=== PATIENT | female | born 1990 | race Hispanic/Latino ===

== ENCOUNTER 2018-02-17 20:41 | Emergency (ER) | payer MEDICARE ==
[~2018-02-17] VITALS: Ht 165.1 cm; Wt 95.3 kg
--- OUTSIDE RECORDS SUMMARY | 2018-02-17 20:45 | XMS REPORT | Summary of Care ---
Author Author [facility] Organization [facility] Address Unknown Phone Unavailable Encounter PAT Graff(KELLEY) [id number] Date(s): 10/29/15 - 10/30/15 [facility] [address] [place] [address]- Discharge Disposition: Home or Self Care Attending Physician: Sofia Lange MD Vital Signs 1 2 3 Most recent to oldest [Reference Range]: 165.1 cm (10/29/15 8:30 PM) Height 99.6 DegF *HI* (10/29/15 8:30 PM) Temperature Oral [96.4-99.1 DegF] 123/87 mmHg (10/30/15 12:42 AM) 117/71 mmHg (10/29/15 11:19 PM) 121/78 mmHg (10/29/15 9:43 PM) Blood Pressure [90-140/60-90 mmHg] 17 BRMIN (10/30/15 12:42 AM) 16 BRMIN (10/29/15 11:19 PM) 18 BRMIN (10/29/15 9:43 PM) Respiratory Rate [14-20 BRMIN] 76 bpm (10/30/15 12:42 AM) 71 bpm (10/29/15 11:19 PM) 76 bpm (10/29/15 9:43 PM) Peripheral Pulse Rate [60-100 bpm] 88.636 kg (10/29/15 8:30 PM) Weight 32.52 m2 (10/29/15 8:30 PM) Body Mass Index Problem List Condition Effective Dates Status Health Status Informant Miscarriage(Confirme Resolved d) Allergies, Adverse Reactions, Alerts Substance Reaction Severity Status NKDA Active Medications acyclovir 800 mg oral tablet 800 mg=1 tab, PO, 5X Day, X 10 day, # 50 tab, 0 Refill(s) Start Date: 10/30/15 Stop Date: 11/09/15 Status: Ordered Flagyl 500 mg oral tablet 500 mg=1 tab, PO, Q8H, X 10 day, # 30 tab, 0 Refill(s) Start Date: 10/30/15 Stop Date: 11/09/15 Status: Ordered Rocephin + sodium chloride 0.9% INJ 100 mL 2 gm, Route: IVPB, ONCE, Dosing Weight 88.636, kg, Priority: STAT, Start date: 0 10/29/15 22:41:00 CDT, Stop date: 10/29/15 22:41:00 CDT Notes: (Same As: Rocephin).Use with 100 mL NS and infuse over 30 min MEDICA TION WASTE Product Size: 2000 mgProduct Wasted: ___ mg Start Date: 10/29/15 Stop Date: 10/29/15 Status: Completed Saline Flush 0.9% 10 mL, Route: IVP, Drug Form: INJ, Dosing Weight 88.636, kg, PRN, PRN Line Flush , Start date: 10/29/15 20:55:00 CDT, Duration: 30 day, Stop date: 11/28/15 20:54 :00 CDT Notes: (Same as: BD Posiflush) Start Date: 10/29/15 Stop Date: 10/30/15 Status: Discontinued Sodium Chloride 0.9% (Bolus) IV 1,000 mL, 2,000 ml/hr, Infuse Over: 30 minutes, Route: IV, 1,000, Drug form: INJ , ONCE, Priority: STAT, Dosing Weight 88.636 kg, Start date: 10/29/15 20:55:00 C DT, Duration: 1 doses or times, Stop date: 10/29/15 20:55:00 CDT Start Date: 10/29/15 Stop Date: 10/29/15 Status: Completed Valtrex 1 gm, 1 tab, Route: PO, Drug form: TAB, ONCE, Dosing Weight 88.636, kg, Start da te: 10/29/15 23:41:00 CDT, Stop date: 10/29/15 23:41:00 CDT Notes: (Same As: Valtrex) Start Date: 10/29/15 Stop Date: 10/30/15 Status: Completed Zithromax 500 mg oral tablet 1,000 mg, 4 tab, Route: PO, Drug form: TAB, ONCE, Dosing Weight 88.636, kg, Star t date: 10/30/15 0:31:00 CDT, Stop date: 10/30/15 0:31:00 CDT Notes: Take 1 hour before or 2 hours after meals.(Same As: Zithromax) Start Date: 10/30/15 Stop Date: 10/30/15 Status: Ordered Results ELECTROLYTES Most recent to 1 oldest [Reference Range]: Sodium Lvl [135-145 136 mEq/L mEq/L] (10/29/15 9:41 PM) Potassium Lvl 3.7 mEq/L [3.5-5.1 mEq/L] (10/29/15 9:41 PM) Chloride Lvl [95-109 102 mEq/L mEq/L] (10/29/15 9:41 PM) CO2 [24-32 mEq/L] 28 mEq/L (10/29/15 9:41 PM) AGAP [10.0-20.0 9.7 mEq/L mEq/L] *LOW* (10/29/15 9:41 PM) CHEM PANEL Most recent to 1 oldest [Reference Range]: Creatinine Lvl 0.66 mg/dL [0.50-1.40 mg/dL] (10/29/15 9:41 PM) eGFR 125 mL/min/1.73m2 1 *NA* (10/29/15 9:41 PM) BUN [7-22 mg/dL] 13 mg/dL (10/29/15 9:41 PM) Glucose Lvl [70-99 90 mg/dL mg/dL] (10/29/15 9:41 PM) Calcium Lvl 8.9 mg/dL [8.5-10.5 mg/dL] (10/29/15 9:41 PM) 1Result Comment: The eGFR is calculated using the CKD-EPI formula. In most young, healthy individuals the eGFR will be >90 mL/min/1.73m2. The eGFR declines with age. An eGFR of 60-89 may be normal in some populations, particularly the elderly, for whom the CKD-EPI formula has not been extensively validated. Use of the eGFR is not recommended in the following populations: Individuals with unstable creatinine concentrations, including patients and those with serious co-morbid conditions. Patients with extremes in muscle mass or diet. The data above are obtained from the National Kidney Disease Education Program ( NKDEP) which additionally recommends that when the eGFR is used in patients with extremes of body mass index for purposes of drug dosing, the eGFR should be mul tiplied by the estimated BMI. URINE CHEM Most recent to 1 oldest [Reference Range]: U Preg [Negative] Negative (10/29/15 9:41 PM) URINE AND STOOL Most recent to 1 oldest [Reference Range]: UA Turbidity [Clear] Clear (10/29/15 9:41 PM) UA Color [Yellow] Yellow *NA* (10/29/15 9:41 PM) UA pH [5.0-8.0] 7.0 (10/29/15 9:41 PM) UA Spec Grav 1.015 [<=1.030] (10/29/15 9:41 PM) UA Glucose [Negative 250 mg/dL mg/dL] *ABN* (10/29/15 9:41 PM) UA Blood [Negative] Trace *ABN* (10/29/15 9:41 PM) UA Ketones Trace [Negative] *ABN* (10/29/15 9:41 PM) UA Protein [Negative 100 mg/dL mg/dL] *ABN* (10/29/15 9:41 PM) UA Urobilinogen >=8.0 EU/dL [0.1-1.0 EU/dL] *ABN* (10/29/15 9:41 PM) UA Bili [Negative] Moderate *ABN* (10/29/15 9:41 PM) UA Leuk Est Large [Negative] *ABN* (10/29/15 9:41 PM) UA Nitrite Positive [Negative] *ABN* (10/29/15 9:41 PM) UA WBC [None Seen 11-20 /HPF /HPF] *ABN* (10/29/15 9:41 PM) UA RBC [0-2 /HPF] 3-5 /HPF *ABN* (10/29/15 9:41 PM) UA Bacteria [None Occasional /HPF Seen /HPF] (10/29/15 9:41 PM) UA Sq Epi [Few /LPF] Moderate /LPF *ABN* (10/29/15 9:41 PM) UA Amorph Masha [None Moderate /HPF Seen /HPF] *ABN* (10/29/15 9:41 PM) UA Mucus [None Seen Few /LPF /LPF] (10/29/15 9:41 PM) HEMATOLOGY Most recent to 1 oldest [Reference Range]: WBC [3.7-10.4 K/CMM] 6.0 K/CMM (10/29/15 9:41 PM) RBC [4.20-5.40 4.21 M/CMM M/CMM] (10/29/15 9:41 PM) Hgb [12.0-16.0 g/dL] 12.6 g/dL (10/29/15 9:41 PM) Hct [36.0-48.0 %] 37.1 % (10/29/15 9:41 PM) MCV [80.0-98.0 fL] 88.2 fL (10/29/15 9:41 PM) MCH [27.0-31.0 pg] 29.9 pg (10/29/15 9:41 PM) MCHC [32.0-36.0 33.9 g/dL g/dL] (10/29/15 9:41 PM) RDW [11.5-14.5 %] 12.0 % (10/29/15 9:41 PM) Platelet [133-450 290 K/CMM K/CMM] (10/29/15 9:41 PM) MPV [7.4-10.4 fL] 7.4 fL (10/29/15 9:41 PM) Segs [45.0-75.0 %] 69.6 % (10/29/15 9:41 PM) Lymphocytes 22.3 % [20.0-40.0 %] (10/29/15 9:41 PM) Monocytes [2.0-12.0 7.2 % %] (10/29/15 9:41 PM) Eosinophils [0.0-4.0 0.9 % %] (10/29/15 9:41 PM) Basophils [0.0-1.0 0.0 % %] (10/29/15 9:41 PM) Segs-Bands # 4.2 K/CMM [1.5-8.1 K/CMM] (10/29/15 9:41 PM) Lymphocytes # 1.3 K/CMM [1.0-5.5 K/CMM] (10/29/15 9:41 PM) Monocytes # [0.0-0.8 0.4 K/CMM K/CMM] (10/29/15 9:41 PM) Eosinophils # 0.1 K/CMM [0.0-0.5 K/CMM] (10/29/15 9:41 PM) Basophils # [0.0-0.2 0.0 K/CMM K/CMM] (10/29/15 9:41 PM) Immunizations No data available for this section Procedures No data available for this section Social History Social History Type Response Smoking Status Never smoker; Exposure to Tobacco Smoke None; Cigarette Smoking Last 365 Days No; Reg Smoking Cessation Counseling No Assessment and Plan No data available for this section
--- OUTSIDE RECORDS SUMMARY | 2018-02-17 20:45 | XMS REPORT | Summary of Care ---
Author Author [facility] Organization [facility] Address Unknown Phone Unavailable Encounter PAT Graff(FIN) [id number] Date(s): 05/11/17 - 05/11/17 [id number] [place] [address]- [phone] Encounter Diagnosis Labor, false (Abdirahman-James) (Discharge Diagnosis) - 05/11/17 False labor at or after 37 completed weeks of gestation (Final) - 05/17/17 37 weeks gestation of (Final) - Personal history of other complications of , childbirth and the puerper ium (Final) - Discharge Disposition: Home or Self Care Attending Physician: Tyler Spears DO Vital Signs 1 2 3 Most recent to oldest [Reference Range]: 165.1 cm (05/11/17 12:45 PM) Height 98.8 DegF (05/11/17 12:45 PM) Temperature Oral [96.4-99.1 DegF] 119/78 mmHg (05/11/17 2:01 PM) 137/81 mmHg (05/11/17 1:07 PM) 135/84 mmHg (05/11/17 12:45 PM) Blood Pressure [90-140/60-90 mmHg] 19 BRMIN (05/11/17 12:45 PM) Respiratory Rate [14-20 BRMIN] 96 bpm (05/11/17 12:45 PM) Peripheral Pulse Rate [60-100 bpm] 106.364 kg (05/11/17 12:45 PM) Weight 39.02 m2 (05/11/17 12:45 PM) Body Mass Index Problem List Condition Effective Dates Status Health Status Informant Miscarriage(Confirme Resolved d) Miscarriage(Confirme < 2015 Resolved d) (Confirmed) 05/11/17 - 05/25/17 Resolved (Confirmed) < 2014 Resolved (Confirmed) < 2013 Resolved (Confirmed) 11/19/12 - 08/26/13 Resolved (Confirmed) 02/04/09 - 11/11/09 Resolved Allergies, Adverse Reactions, Alerts Substance Reaction Severity Status NKDA Active Medications 1 oral capsule 0 Refill(s) Start Date: 05/11/17 Status: Ordered Results No data available for this section Immunizations Not Given Vaccine Date Status Refusal Reason diphtheria/pertussis, acel/tetanus adult 05/27/17 Not Given Patient Refuses Procedures No data available for this section Social History Social History Type Response Smoking Status Never smoker; Exposure to Tobacco Smoke None; Cigarette Smoking Last 365 Days No; Reg Smoking Cessation Counseling No entered on: 05/24/17 Assessment and Plan No data available for this section
--- OUTSIDE RECORDS SUMMARY | 2018-02-17 20:45 | XMS REPORT | CCD ---
Author Author Auto Generated Organization [facility] [place] Address Unknown Phone Unavailable Care Team Providers Care Agricultural Produce Packer Name Role Phone Yousif Lantigua CP Allergies, Adverse Reactions, Alerts Substance Reaction Status NKDA Active
--- OUTSIDE RECORDS SUMMARY | 2018-02-17 20:45 | XMS REPORT | Summary of Care ---
Author Author [facility] Outpatient [facility]patient [facility] Address Unknown Phone Unavailable Encounter HQ Encntr_alias(FIN) [id number] Date(s): 03/05/16 - 03/05/16 [facility] Outpatient Imaging [facility] [address] [place], [place] [address]- [phone] Discharge Disposition: Home or Self Care Attending Physician: [id number] MAGDALENO Vital Signs No data available for this section Problem List Condition Effective Dates Status Health Status Informant Miscarriage(Confirme Resolved d) Allergies, Adverse Reactions, Alerts Substance Reaction Severity Status NKDA Active Medications No data available for this section Results No data available for this section Immunizations No data available for this section Procedures No data available for this section Social History Social History Type Response Smoking Status Never smoker; Exposure to Tobacco Smoke None; Cigarette Smoking Last 365 Days No; Reg Smoking Cessation Counseling No Assessment and Plan No data available for this section
--- OUTSIDE RECORDS SUMMARY | 2018-02-17 20:45 | XMS REPORT | Summary of Care ---
Author Author [facility] Organization [facility] Address Unknown Phone Unavailable Encounter PAT Graff(KELLEY) [id number] Date(s): 12/02/16 - 12/02/16 [facility] [address] [place] [address]- [phone] Discharge Disposition: [facility] Left B4 Treatment Cmplt-MSE Cmplt Attending Physician: Tee Hensley MD Vital Signs Most recent to 1 oldest [Reference Range]: Temperature Oral 99.1 DegF [96.4-99.1 DegF] (12/02/16 3:41 PM) Blood Pressure 108/68 mmHg [90-140/60-90 mmHg] (12/02/16 3:41 PM) Respiratory Rate 22 BRMIN [14-20 BRMIN] *HI* (12/02/16 3:41 PM) Peripheral Pulse 115 bpm Rate [60-100 bpm] *HI* (12/02/16 3:41 PM) Weight 90.909 kg (12/02/16 3:41 PM) Problem List Condition Effective Dates Status Health Status Informant Miscarriage(Confirme Resolved d) Allergies, Adverse Reactions, Alerts Substance Reaction Severity Status NKDA Active Medications No data available for this section Results No data available for this section Immunizations No data available for this section Procedures No data available for this section Social History Social History Type Response Smoking Status Never smoker; Ready to change: No; Concerns about tobacco use in household: No; Exposure to Tobacco Smoke None; Cigarette Smoking Last 365 Days No; Reg Smoking Cessation Counseling No Assessment and Plan No data available for this section
--- OUTSIDE RECORDS SUMMARY | 2018-02-17 20:45 | XMS REPORT | Summary of Care ---
Author Author [facility] Organization [facility] Address Unknown Phone Unavailable Encounter PAT Graff(KELLEY) [id number] Date(s): 12/06/16 - 12/06/16 [facility] [address] [place] [address]- Discharge Diagnosis: Abdominal pain in Discharge Disposition: Home or Self Care Attending Physician: Tomer Diamond MD Vital Signs Most recent to 1 2 oldest [Reference Range]: Height 165.1 cm (12/06/16 2:13 AM) Temperature Oral 98.8 DegF 98.9 DegF [96.4-99.1 DegF] (12/06/16 6:00 AM) (12/06/16 2:13 AM) Blood Pressure 125/75 mmHg 126/88 mmHg [90-140/60-90 mmHg] (12/06/16 6:00 AM) (12/06/16 2:13 AM) Respiratory Rate 20 BRMIN 20 BRMIN [14-20 BRMIN] (12/06/16 6:00 AM) (12/06/16 2:13 AM) Peripheral Pulse 98 bpm 102 bpm Rate [60-100 bpm] (12/06/16 6:00 AM) *HI* (12/06/16 2:13 AM) Weight 95.455 kg (12/06/16 2:13 AM) Body Mass Index 35.02 m2 (12/06/16 2:13 AM) Problem List Condition Effective Dates Status Health Status Informant Miscarriage(Confirme Resolved d) Allergies, Adverse Reactions, Alerts Substance Reaction Severity Status NKDA Active Medications acetaminophen 650 mg, 2 tab, Route: PO, Drug form: TAB, ONCE, Dosing Weight 95.455, kg, Priori ty: STAT, Start date: 12/06/16 2:30:00 CDT, Stop date: 12/06/16 2:30:00 CDT Notes: Do not exceed 4 gm/day. (Same as: Tylenol) Start Date: 12/06/16 Stop Date: 12/06/16 Status: Completed ondansetron 4 mg, 2 mL, Route: IVP, Drug form: INJ, ONCE, Dosing Weight 95.455, kg, Priority : STAT, Start date: 12/06/16 2:30:00 CDT, Stop date: 12/06/16 2:30:00 CDT Notes: (Same as: Zofran) MEDICATION WASTE Product Size: 4 mgProduct Was mt: ___ mg Start Date: 12/06/16 Stop Date: 12/06/16 Status: Completed Saline Flush 0.9% 10 mL, Route: IVP, Drug Form: INJ, Dosing Weight 95.455, kg, PRN, PRN Line Flush , Start date: 12/06/16 2:30:00 CDT, Duration: 30 day, Stop date: 01/05/17 1:29:0 0 SUPERVISORY CLERK Notes: (Same as: BD Posiflush) Start Date: 12/06/16 Stop Date: 12/06/16 Status: Discontinued Sodium Chloride 0.9% (Bolus) IV 1,000 mL, 1,000 ml/hr, Infuse Over: 1 hr, Route: IV, 1,000, Drug form: INJ, ONCE , Priority: STAT, Dosing Weight 95.455 kg, Start date: 12/06/16 2:30:00 CDT, Dur ation: 1 doses or times, Stop date: 12/06/16 2:30:00 CDT Start Date: 12/06/16 Stop Date: 12/06/16 Status: Completed Results BLOOD BANK RESULTS Most recent to 1 oldest [Reference Range]: ABO/Rh O POS *Unknown* (12/06/16 3:13 AM) ELECTROLYTES Most recent to 1 oldest [Reference Range]: Sodium Lvl [135-145 135 mEq/L mEq/L] (12/06/16 3:13 AM) Potassium Lvl 3.4 mEq/L [3.5-5.1 mEq/L] *LOW* (12/06/16 3:13 AM) Chloride Lvl [95-109 102 mEq/L mEq/L] (12/06/16 3:13 AM) CO2 [24-32 mEq/L] 24 mEq/L (12/06/16 3:13 AM) AGAP [10.0-20.0 12.4 mEq/L mEq/L] (12/06/16:13 AM) CHEM PANEL Most recent to 1 oldest [Reference Range]: Creatinine Lvl 0.50 mg/dL [0.50-1.40 mg/dL] (12/06/16 3:13 AM) eGFR 136 mL/min/1.73m2 1 *NA* (12/06/16:13 AM) BUN [7-22 mg/dL] 9 mg/dL (12/06/16 3:13 AM) Glucose Lvl [70-99 99 mg/dL mg/dL] (12/06/16:13 AM) Calcium Lvl 8.8 mg/dL [8.5-10.5 mg/dL] (12/06/16:13 AM) 1Result Comment: The eGFR is calculated using [...] be mul tiplied by the estimated BMI. ENDOCRINOLOGY Most recent to 1 oldest [Reference Range]: [place] [address] mIU/mL *NA* (12/06/16 3:13 AM) URINE AND STOOL Most recent to 1 oldest [Reference Range]: UA Turbidity [Clear] Slight *ABN* (12/06/16 3:13 AM) UA Color Yellow *NA* (12/06/16 3:13 AM) UA pH [5.0-8.0] 5.0 (12/06/16 3:13 AM) UA Spec Grav 1.024 [<=1.030] (12/06/16 3:13 AM) UA Glucose [Negative Negative mg/dL mg/dL] *NA* (12/06/16 3:13 AM) UA Blood [Negative] Negative (12/06/16 3:13 AM) UA Ketones [Negative Negative mg/dL mg/dL] *NA* (12/06/16 3:13 AM) UA Protein [Negative Negative mg/dL mg/dL] (12/06/16 3:13 AM) UA Urobilinogen <=1.0 mg/dL [0.1-1.0 mg/dL] *NA* (12/06/16 3:13 AM) UA Bili [Negative] Negative *NA* (12/06/16 3:13 AM) UA Leuk Est Trace [Negative] *ABN* (12/06/16 3:13 AM) UA Nitrite Negative [Negative] (12/06/16 3:13 AM) UA WBC [0-5 /HPF] 3 /HPF (12/06/16 3:13 AM) UA RBC [0-2 /HPF] 1 /HPF (12/06/16 3:13 AM) UA Bacteria [None Occasional /HPF Seen /HPF] *NA* (12/06/16 3:13 AM) UA Sq Epi [Few /LPF] Many /LPF *ABN* (12/06/16 3:13 AM) UA Mucus [None Seen Moderate /LPF /LPF] *ABN* (12/06/16 3:13 AM) HEMATOLOGY Most recent to 1 oldest [Reference Range]: WBC [3.7-10.4 K/CMM] 10.1 K/CMM (12/06/16 3:13 AM) RBC [4.20-5.40 3.87 M/CMM M/CMM] *LOW* (12/06/16 3:13 AM) Hgb [12.0-16.0 g/dL] 11.5 g/dL *LOW* (12/06/16 3:13 AM) Hct [36.0-48.0 %] 34.1 % *LOW* (12/06/16 3:13 AM) MCV [80.0-98.0 fL] 88.1 fL (12/06/16 3:13 AM) MCH [27.0-31.0 pg] 29.8 pg (12/06/16 3:13 AM) MCHC [32.0-36.0 33.8 g/dL g/dL] (12/06/16 3:13 AM) RDW [11.5-14.5 %] 12.4 % (12/06/16 3:13 AM) Platelet [133-450 327 K/CMM K/CMM] (12/06/16 3:13 AM) MPV [7.4-10.4 fL] 7.0 fL *LOW* (12/06/16 3:13 AM) Segs [45.0-75.0 %] 80.7 % *HI* (12/06/16 3:13 AM) Lymphocytes 14.2 % [20.0-40.0 %] *LOW* (12/06/16 3:13 AM) Monocytes [2.0-12.0 3.8 % %] (12/06/16 3:13 AM) Eosinophils [0.0-4.0 1.2 % %] (12/06/16 3:13 AM) Basophils [0.0-1.0 0.1 % %] (12/06/16 3:13 AM) Segs-Bands # 8.2 K/CMM [1.5-8.1 K/CMM] *HI* (12/06/16 3:13 AM) Lymphocytes # 1.4 K/CMM [1.0-5.5 K/CMM] (12/06/16 3:13 AM) Monocytes # [0.0-0.8 0.4 K/CMM K/CMM] (12/06/16 3:13 AM) Eosinophils # 0.1 K/CMM [0.0-0.5 K/CMM] (12/06/16 3:13 AM) Basophils # [0.0-0.2 0.0 K/CMM K/CMM] (12/06/16 3:13 AM) Immunizations No data available for this section Procedures No data available for this section Social History Social History Type Response Smoking Status Never smoker; Exposure to Tobacco Smoke None; Cigarette Smoking Last 365 Days No; Reg Smoking Cessation Counseling No Assessment and Plan No data available for this section
--- OUTSIDE RECORDS SUMMARY | 2018-02-17 20:45 | XMS REPORT | Continuity of Care Document ---
Author Author [facility] Interface Address Unknown Phone Unavailable Problems Problem Status Onset Date Classification Date Reported Comments Source Maternal care for excessive growth, third trimester, not applicable or unspecified 06/01/2017 09/02/2017 [facility] False labor at or after 37 completed weeks of gestation 05/31/2017 08/29/2017 [facility] Encounter for supervision of low-risk in third trimester 05/17/2017 08/23/2017 [facility] CONTRACTIONS Active 05/17/2017 [facility] Labor, false 05/11/2017 08/17/2017 [facility] Resolved 05/11/2017 Problem 09/02/2017 [facility] 34 WEEKS, VAGINAL DELIVERY Active 04/22/2017 [facility] Discharge Diagnosis: Abdominal pain in 12/06/2016 12/09/2016 [facility] ABD PAIN Active 12/05/2016 [facility] 12 WEEKS PREG ABD PAIN Active 12/02/2016 [facility] Discharge Diagnosis: Pelvic pain 08/17/2016 08/20/2016 [facility] STOMACH PAIN Active 08/16/2016 [facility] LOWER ABDOMINAL PAIN Active 10/29/2015 [facility] Discharge Diagnosis: Threatened in first trimester 11/01/2014 11/04/2014 [facility] VAG BLEEDING Active 11/01/2014 [facility] 649.6 - UTERINE SIZE DT Active 03/15/2013 [facility] [facility]iscar[facility] 39 weeks gestation of 09/02/2017 [facility] 38 weeks gestation of 08/23/2017 [facility] 37 weeks gestation of 08/17/2017 [facility] Personal history of other complications of , childbirth and the puerperium 08/17/2017 [facility] Obesity complicating childbirth 09/02/2017 [facility] Body mass index 40.0-44.9, adult 09/02/2017 [facility] Single live 09/02/2017 [facility] ENCOUNTER FOR FULL-TERM UNCOMPLICATED DE Active [facility] Medications Medication Details Route Status Patient Instructions Ordering Provider Order Date Source ibuprofen 600 mg oral tablet 600 mg=1 tab, PO, Q6H, # 30 tab, 1 Refill(s), Pharmacy: [facility] [id number] No Longer Active 05/26/2017 [facility] Multivitamins oral tablet 1 tab, Route: PO, Drug Form: TAB, Dosing Weight 109.091, kg, Daily, Start date: 05/26/17 9:00:00 CDT, Duration: 30 day, Stop date: 06/24/17 9:00:00 CDT No Longer Active 05/26/2017 [facility] Ibuprofen 600 mg, 1 tab, Route: PO, Drug form: TAB, Q6H, Dosing Weight 109.091, kg, Start date: 05/25/17 12:00:00 CDT, Duration: 30 day, Stop date: 06/24/17 6:00:00 CDTNotes: (Same as: Motrin) "Do Not Crush" Take with food. No Longer Active 05/25/2017 [facility] Demerol HCl 25 mg, 0.5 mL, Route: IVP, Drug form: INJ, ONCE, Dosing Weight 109.091, kg, PRN Chills/Rigors, Start date: 05/25/17 10:44:00 CDTNotes: (Same As: Demerol) No Longer Active 05/25/2017 [facility] Acetaminophen 325 MG / Hydrocodone Bitartrate 10 MG Oral Tablet 1 tab, Route: PO, Drug Form: TAB, Dosing Weight 109.091, kg, Q4H, PRN Pain Score 7-10, Start date: 05/25/17 10:42:00 CDT, Duration: 30 day, Stop date: 06/24/17 10:41:00 CDTNotes: Do not exceed 4gm/day of acetaminophen. (Same as: [place] 325/10) No Longer Active 05/25/2017 [facility] Acetaminophen 325 MG / Hydrocodone Bitartrate 5 MG Oral Tablet 1 tab, Route: PO, Drug Form: TAB, Dosing Weight 109.091, kg, Q4H, PRN Pain Score 4-6, Start date: 05/25/17 10:42:00 CDT, Duration: 30 day, Stop date: 06/24/17 10:41:00 CDTNotes: (Same as: [place] 325/5) Do not exceed 4gm/day of acetaminophen. No Longer Active 05/25/2017 [facility] Methylergonovine 0.2 mg, 1 mL, Route: IM, Drug form: INJ, PRN, Dosing Weight 109.091, kg, PRN Other -See Comment, Start date: 05/25/17 10:42:00 CDT, Duration: 30 day, Stop date: 06/24/17 10:41:00 CDTNotes: (Same as:Methergine) No Longer Active 05/25/2017 [facility] Benzocaine 200 MG/ML Topical [place] [Dermoplast] 1 spray, Route: TOP, PRN, Drug form: SPRY, PRN Irritation, Start date: 05/25/17 10:42:00 CDT, Duration: 30 day, Stop date: 06/24/17 10:41:00 CDTNotes: (Same As: Dermoplast) WASTE: Aerosol - Return to Pharmacy FOR EXTERNAL USE ONLY No Longer Active 05/25/2017 [facility] Docusate 100 mg, 1 cap, Route: PO, Drug form: CAP, BID, Dosing Weight 109.091, kg, PRN Constipation, Start date: 05/25/17 10:42:00 CDT, Duration: 30 day, Stop date: 06/24/17 10:41:00 CDTNotes: (Same as: Colace) (Do Not Crush) No Longer Active 05/25/2017 [facility] Ondansetron 4 mg, 2 mL, Route: IVP, Drug form: INJ, Q8H, Dosing Weight 109.091, kg, PRN Nausea & Vomiting, Start date: 05/25/17 10:42:00 CDT, Duration: 30 day, Stop date: 06/24/17 10:41:00 CDTNotes: (Same as: Zofran) MEDICATION WASTE Product Size: 4 mg Product Wasted: ___ mg No Longer Active 05/25/2017 [facility] zolpidem 5 mg, 1 tab, Route: PO, Drug form: TAB, Bedtime, Dosing Weight 109.091, kg, PRN Sleep, Start date: 05/25/17 10:42:00 CDT, Duration: 30 day, Stop date: 06/24/17 10:41:00 CDTNotes: (Same As: Ambien) No Longer Active 05/25/2017 [facility] lanolin topical 1 appl, Route: TOP, PRN, Drug form: OINT, PRN Other -See Comment, Start date: 05/25/17 10:42:00 CDT, Duration: 30 day, Stop date: 06/24/17 10:41:00 CDTNotes: (Same as:Lanolin) No Longer Active 05/25/2017 [facility] Bisacodyl 10 mg, 1 supp, Route: [place], Drug form: SUPP, PRN, Dosing Weight 109.091, kg, PRN Other -See Comment, Start date: 05/25/17 10:42:00 CDT, Duration: 30 day, Stop date: 06/24/17 10:41:00 CDTNotes: (Same As: Dulcolax, Bisco-Lax) No Longer Active 05/25/2017 [facility] Lactated Ringers IV 1,000 mL 1,000 mL, Rate: 100 ml/hr, Infuse over: 10 hr, Route: IV, Dosing Weight 109.091 kg, Total Volume: 1,000, Start date: 05/25/17 10:42:00 CDT, Duration: 30 day, Stop date: 06/24/17 10:41:00 CDT, 2.27, m2 No Longer Active 05/25/2017 [facility] Oxytocin 30 unit, 500 mL, Rate: 42 ml/hr, Infuse over: 11.9 hr, Dosing Weight 109.091, kg, Route: IV, Total Volume: 500 mL, Start date: 05/25/17 10:42:00 CDT, Duration: 2 day, Stop date: 05/27/17 10:41:00 CDT, Replace Every: 11.9 hr No Longer Active 05/25/2017 [facility] Acetaminophen 650 mg, Route: PO, Drug form: TAB, ONCE, Dosing Weight 109.091, kg, PRN For Temp > 100.4 F, Start date: 05/25/17 10:10:00 CDT Inactive 05/25/2017 [facility] Oxytocin 30 unit, 500 mL, Rate: Titrate, Dosing Weight 109.091, kg, Route: IV, Total Volume: 500 mL, Start date: 05/25/17 3:00:00 CDT, Duration: 2 day, Stop date: 05/27/17 2:59:00 CDT, Replace Every: 24 hr Inactive 05/25/2017 [facility] Ampicillin 2 gm, Route: IVPB, ABXQ6H, Dosing Weight 109.091, kg, Start date: 05/24/17 22:00:00 CDT, Duration: 30 day, Stop date: 06/23/17 16:00:00 CDTNotes: (Same as: Norah) MEDICATION WASTE Product Size: 2000 mg Product Wasted: ___ mg No Longer Active 05/25/2017 [facility] Remove - dinoprostone (Cervidil) insert 1 ea, Route: VAG, Drug Form: INS, Dosing Weight 109.091, kg, ONCALL, Start date: 05/24/17 20:00:00 CDT, Duration: 30 day, Stop date: 06/23/17 19:59:00 CDTNotes: Vaginal insert: to be removed 1 hour prior to oxytocin administration or 12 hours after insertion. No Longer Active 05/25/2017 [facility] Cervidil 10 mg, 1 supp, Route: VAG, Drug form: SUPP, ONCE, Dosing Weight 109.091, kg, Start date: 05/24/17 17:27:00 CDT, Stop date: 05/24/17 17:27:00 CDTNotes: (Same as: Cervidil) Inactive 05/24/2017 [facility] Misoprostol 100 microgram, 1 tab, Route: PO, Drug form: TAB, Q4H, Dosing Weight 109.091, kg, Start date: 05/24/17 9:19:00 CDT, Duration: 30 day, Stop date: 06/23/17 8:00:00 CDTNotes: (Same as:Cytotec) Take with food Inactive 05/24/2017 [facility] Misoprostol 1,000 microgram, 5 tab, Route: NY, Drug form: TAB, ONCALL, Dosing Weight 109.091, kg, Start date: 05/24/17 8:00:00 CDT, Duration: 1 doses or timesNotes: (Same as:Cytotec) Take with food No Longer Active 05/24/2017 [facility] Methylergonovine 0.2 mg, 1 mL, Route: IM, Drug form: INJ, ONCALL, Dosing Weight 109.091, kg, Start date: 05/24/17 8:00:00 CDT, Duration: 30 day, Stop date: 06/23/17 7:59:00 CDTNotes: (Same as:Methergine) No Longer Active 05/24/2017 [facility] Famotidine 20 mg, 2 mL, Route: IVP, Drug form: INJ, ONCALL, Dosing Weight 109.091, kg, Start date: 05/24/17 8:00:00 CDT, Duration: 30 day, Stop date: 06/23/17 7:59:00 CDTNotes: (Same as: Pepcid) Can be dilute in 5-10cc NS IVP: Slow IV push over at least 2 minutes. No Longer Active 05/24/2017 [facility] Carboprost 250 microgram, 1 mL, Route: IM, Drug form: INJ, ONCALL, Dosing Weight 109.091, kg, Start date: 05/24/17 8:00:00 CDT, Duration: 30 day, Stop date: 06/23/17 7:59:00 CDTNotes: (Same As: Hemabate) No Longer Active 05/24/2017 [facility] Citric Acid / sodium citrate 30 mL, Route: PO, Drug Form: SOLN, Dosing Weight 109.091, kg, ONCALL, Start date: 05/24/17 8:00:00 CDT, Duration: 30 day, Stop date: 06/23/17 7:59:00 CDTNotes: (Same As: Bicitra) No Longer Active 05/24/2017 [facility] Lidocaine Hydrochloride 10 MG/ML Injectable Solution 200 mg, 20 mL, Route: PERCUT, Drug Form: INJ, Dosing Weight 109.091, kg, PRN, PRN Other -See Comment, Start date: 05/24/17 7:25:00 CDT, Duration: 1 doses or times, Stop date: Limited # of timesNotes: (Same as: Xylocaine) No Longer Active 05/24/2017 [facility] Ondansetron 4 mg, 2 mL, Route: IVP, Drug form: INJ, Q8H, Dosing Weight 109.091, kg, PRN Nausea & Vomiting, Start date: 05/24/17 7:25:00 CDT, Duration: 30 day, Stop date: 06/23/17 7:24:00 CDTNotes: (Same as: Nicolas) MEDICATION WASTE Product Size: 4 mg Product Wasted: ___ mg No Longer Active 05/24/2017 [facility] Terbutaline 0.25 mg, 0.25 mL, Route: SUB-Q, Drug form: INJ, PRN, Dosing Weight 109.091, kg, PRN Other -See Comment, Start date: 05/24/17 7:25:00 CDT, Duration: 1 doses or times, Stop date: Limited # of timesNotes: DO NOT USE IN NIGHT FILLER AREA (Same As: Meet) No Longer Active 05/24/2017 [facility] Lactated Ringers IV 1,000 mL 1,000 mL, Rate: 125 ml/hr, Infuse over: 8 hr, Route: IV, Dosing Weight 109.091 kg, Total Volume: 1,000, Start date: 05/24/17 7:25:00 CDT, Duration: 30 day, Stop date: 06/23/17 7:24:00 CDT, 2.27, m2 No Longer Active 05/24/2017 [facility] Calcium Chloride 0.0014 MEQ/ML / Potassium Chloride 0.004 MEQ/ML / Sodium Chloride 0.103 MEQ/ML / Sodium Lactate 0.028 MEQ/ML Injectable Solution 1,000 mL, 1,000 ml/hr, Infuse Over: 1 hr, Route: IV, 1,000, Drug form: INJ, ONCE, Dosing Weight 109.091 kg, Start date: 05/24/17 7:25:00 CDT, Stop date: 05/24/17 7:25:00 CDT, Bolus for regional anesthesia per unit protocol No Longer Active 05/24/2017 [facility] Oxytocin 30 unit, 500 mL, Rate: 42 ml/hr, Infuse over: 11.9 hr, Dosing Weight 109.091, kg, Route: IV, Total Volume: 500 mL, Start date: 05/24/17 7:25:00 CDT, Duration: 2 day, Stop date: 05/26/17 7:24:00 CDT, Replace Every: 11.9 hr No Longer Active 05/24/2017 [facility] Ibuprofen 600 mg, 1 tab, Route: PO, Drug form: TAB, Q6H, Dosing Weight 109.091, kg, PRN Other -See Comment, Start date: 05/24/17 7:25:00 CDT, Duration: 30 day, Stop date: 06/23/17 7:24:00 CDTNotes: (Same as: Motrin) "Do Not Crush" Take with food. No Longer Active 05/24/2017 [facility] Acetaminophen 325 MG / Hydrocodone Bitartrate 5 MG Oral Tablet 2 tab, Route: PO, Drug Form: TAB, Dosing Weight 109.091, kg, Q4H, PRN Pain Score 7-10, Start date: 05/24/17 7:25:00 CDT, Duration: 30 day, Stop date: 06/23/17 7:24:00 CDTNotes: (Same as: [place] 325/5) Do not exceed 4gm/day of acetaminophen. No Longer Active 05/24/2017 [facility] Butorphanol 2 mg, 1 mL, Route: IVP, Drug form: INJ, Q2H, Dosing Weight 109.091, kg, PRN Pain Score 7-10, Start date: 05/24/17 7:25:00 CDT, Duration: 30 day, Stop date: 06/23/17 7:24:00 CDTNotes: (Same As: Staarely) MEDICATION WASTE Product Size: 2 mg Product Wasted: ___ mg No Longer Active 05/24/2017 [facility] Calcium Chloride 0.0014 MEQ/ML / Potassium Chloride 0.004 MEQ/ML / Sodium Chloride 0.103 MEQ/ML / Sodium Lactate 0.028 MEQ/ML Injectable Solution 1,000 mL, 1,000 ml/hr, Infuse Over: 1 hr, Route: IV, ONCE, Priority: STAT, Dosing Weight 108.182 kg, Start date: 05/23/17 11:25:00 CDT, Stop date: 05/23/17 11:25:00 CDT Inactive 05/23/2017 [facility] 1 oral capsule 0 Refill(s) Active 05/11/2017 [facility] Ondansetron 4 mg, 2 mL, Route: IVP, Drug form: INJ, ONCE, Dosing Weight 95.455, kg, Priority: STAT, Start date: 12/06/16 2:30:00 CDT, Stop date: 12/06/16 2:30:00 CDTNotes: (Same as: Nicolas) MEDICATION WASTE * Product Size: 4 mg Product Wasted: ___ mg Inactive 12/06/2016 [facility] Acetaminophen 650 mg, 2 tab, Route: PO, Drug form: TAB, ONCE, Dosing Weight 95.455, kg, Priority: STAT, Start date: 12/06/16 2:30:00 CDT, Stop date: 12/06/16 2:30:00 CDTNotes: Do not exceed 4 gm/day. (Same as: Ty lenol) Inactive 12/06/2016 [facility] Sodium Chloride 0.9% (Bolus) IV 1,000 mL, 1,000 ml/hr, Infuse Over: 1 hr, Route: IV, 1,000, Drug form: INJ, ONCE, Priority: STAT, Dosing Weight 95.455 kg, Start date: 12/06/16 2:30:00 CDT, Duration: 1 doses or times, Stop date: 12/06/16 2:30:00 CDT Inactive 12/06/2016 [facility] Saline Flush 0.9% 10 mL, Route: IVP, Drug Form: INJ, Dosing Weight 95.455, kg, PRN, PRN Line Flush, Start date: 12/06/16 2:30:00 CDT, Duration: 30 day, Stop date: 01/05/17 1:29:00 CSTNotes: (Same as: BD Posiflush) Inactive 12/06/2016 [facility] tramadol hydrochloride 50 MG Oral Tablet 50 mg=1 tab, PO, Q4H, # 12 tab, 0 Refill(s) Active 08/17/2016 [facility] Ibuprofen 200 MG Oral Tablet [Motrin] 400 mg=2 tab, PO, Q6H, PRN Fever, # 120 tab, 0 Refill(s) Active 08/17/2016 [facility] Motrin 400 mg, 1 tab, Route: PO, Drug form: TAB, ONCE, Dosing Weight 93.182, kg, Priority: STAT, Start date: 08/16/16 22:55:00 CDT, Stop date: 08/16/16 22:55:00 CDTNotes: (Same as: Motrin) "Do Not Crush" Give with food. No Longer Active 08/17/2016 [facility] sodium chloride 0.9% 1000 ml INJ 1,000 mL 1,000 mL, Rate: 125 ml/hr, Infuse over: 8 hr, Route: IV, Dosing Weight 93.182 kg, Total Volume: 1,000, Start date: 08/16/16 22:41:00 CDT, Duration: 30 day, Stop date: 09/15/16 22:40:00 CDT No Longer Active 08/17/2016 [facility] Omnipaque 300 injectable solution 85 mL, Route: IVP, Drug Form: SOLN, Dosing Weight 93.182, kg, ONCALL, GFR > 45 mL/min, STAT, Start date: 08/16/16 21:18:00 CDT, Duration: 1 doses or timesNotes: (Same as:Omnipaque 300). WASTE: F/P - Black; E - Municipal Trash Bin Inactive 08/17/2016 [facility] Zosyn 3.375 gm, Route: IVPB, ONCE, Dosing Weight 93.182, kg, Priority: STAT, Start date: 08/16/16 20:05:00 CDT, Duration: 1 doses or times, Stop date: 08/16/16 20:05:00 CDT, ABX Indication: Intra-abdominal In fectionNotes: (Same as: Zosyn) Dosing based on Piperacillin component MEDICATION WASTE Product Size: 3375 mg Product Wasted: ___ mg Inactive 08/17/2016 [facility] Zofran 4 mg, 2 mL, Route: IVP, Drug form: INJ, ONCE, Dosing Weight 93.182, kg, Priority: STAT, Start date: 08/16/16 20:05:00 CDT, Stop date: 08/16/16 20:05:00 CDTNotes: (Same as: Zofran) MEDICATION WASTE Product Size: 4 mg Product Wasted: ___ mg Inactive 08/17/2016 [facility] Morphine 4 mg, 1 mL, Route: IVP, Drug form: INJ, ONCE, Dosing Weight 93.182, kg, Priority: STAT, Start date: 08/16/16 20:04:00 CDT, Stop date: 08/16/16 20:04:00 CDTNotes: (Same as:MORPhine Sulfate) Inactive 08/17/2016 [facility] Sodium Chloride 0.154 MEQ/ML Injectable Solution 1,000 mL, 1,000 ml/hr, Infuse Over: 1 hr, Route: IV, 1,000, Drug form: INJ, ONCE, Priority: STAT, Dosing Weight 93.182 kg, Start date: 08/16/16 20:04:00 CDT, Duration: 1 doses or times, Stop date: 08/16/16 20:04:00 CDT Inactive 08/17/2016 [facility] acyclovir 800 mg oral tablet 800 mg=1 tab, PO, 5X Day, X 10 day, # 50 tab, 0 Refill(s) Active 10/30/2015 [facility] Metronidazole 500 MG Oral Tablet [Flagyl] 500 mg=1 tab, PO, Q8H, X 10 day, # 30 tab, 0 Refill(s) Active 10/30/2015 [facility] Azithromycin 500 MG Oral Tablet [Zithromax] 1,000 mg, 4 tab, Route: PO, Drug form: TAB, ONCE, Dosing Weight 88.636, kg, Start date: 10/30/15 0:31:00 CDT, Stop date: 10/30/15 0:31:00 CDTNotes: Take 1 hour before or 2 hours after meals. (Same As: Zithromax) Inactive 10/30/2015 [facility] Valtrex 1 gm, 1 tab, Route: PO, Drug form: TAB, ONCE, Dosing Weight 88.636, kg, Start date: 10/29/15 23:41:00 CDT, Stop date: 10/29/15 23:41:00 CDTNotes: (Same As: Valtrex) No Longer Active 10/30/2015 [facility] Rocephin 2 gm, Route: IVPB, ONCE, Dosing Weight 88.636, kg, Priority: STAT, Start date: 10/29/15 22:41:00 CDT, Stop date: 10/29/15 22:41:00 CDTNotes: (Same As: Rocephin). Use with 100 mL NS and infuse over 30 m in MEDICATION WASTE Product Size: 2000 mg Product Wasted: ___ mg Inactive 10/30/2015 [facility] Saline Flush 0.9% 10 mL, Route: IVP, Drug Form: INJ, Dosing Weight 88.636, kg, PRN, PRN Line Flush, Start date: 10/29/15 20:55:00 CDT, Duration: 30 day, Stop date: 11/28/15 20:54:00 CDTNotes: (Same as: BD Posiflush) No Longer Active 10/30/2015 [facility] Sodium Chloride 0.154 MEQ/ML Injectable Solution 1,000 mL, 2,000 ml/hr, Infuse Over: 30 minutes, Route: IV, 1,000, Drug form: INJ, ONCE, Priority: STAT, Dosing Weight 88.636 kg, Start date: 10/29/15 20:55:00 CDT, Duration: 1 doses or times, Stop date: 10/29/15 20:55:00 CDT Inactive 10/30/2015 [facility] Metronidazole 500 MG Oral Tablet [Flagyl] 500 mg=1 tab, PO, BID, X 7 day, # 14 tab, 0 Refill(s) Active 11/01/2014 [facility] Saline Flush 0.9% 10 mL, Route: IVP, Drug Form: INJ, Dosing Weight 76.364, kg, PRN, PRN Line Flush, Start date: 11/01/14 9:52:00, Duration: 30 day, Stop date: 12/01/14 9:51:00Notes: (Same as: BD Posiflush) Inactive 11/01/2014 [facility] Allergies, Adverse Reactions, Alerts Substance Category Reaction Severity Reaction type Status Date Reported Comments Source Immunizations Immunization Date Given Site Status Last Updated Comments Source diphtheria/pertussis, acel/tetanus adult 05/27/2017 Not Given [facility] Results Order Name Results Value Reference Range Date Interpretation Comments Source HEMATOLOGY Hgb 7.4 g/dL 12.0 - 16.0 05/26/2017 [facility] HEMATOLOGY Hct 24.0 % 36.0 - 48.0 05/26/2017 [facility] BLOOD BANK RESULTS Antibody Scrn Negative (05/24/17 7:27 AM) 05/24/2017 [facility] BLOOD BANK RESULTS Rhig Reqd See Note 1 (05/24/17 7:27 AM) 05/24/2017 Result Comment: 05/24/2017 08:19 [id number] This patient is not a candidate for Rh(O)D immune globulin. [facility] BLOOD BANK RESULTS ABO/Rh O POS 05/24/2017 [facility] WBC 7.5 K/CMM 3.7 - 10.4 05/24/2017 [facility] RBC 3.40 M/CMM 4.20 - 5.40 05/24/2017 [facility] Hgb 9.4 g/dL 12.0 - 16.0 05/24/2017 [facility] MCV 81.7 fL 80.0 - 98.0 05/24/2017 [facility] Hct 27.8 % 36.0 - 48.0 05/24/2017 [facility] MCH 27.7 pg 27.0 - 31.0 05/24/2017 [facility] RDW 15.9 % 11.5 - 14.5 05/24/2017 [facility] MPV 8.0 fL 7.4 - 10.4 05/24/2017 [facility] MCHC 33.9 g/dL 32.0 - 36.0 05/24/2017 [facility] Platelet 273 K/CMM 133 - 450 05/24/2017 [facility] Eosinophils # 0.1 K/CMM 0.0 - 0.5 05/24/2017 [facility] Basophils # 0.0 K/CMM 0.0 - 0.2 05/24/2017 [facility] Monocytes 5.7 % 2.0 - 12.0 05/24/2017 [facility] Basophils 0.4 % 0.0 - 1.0 05/24/2017 [facility] Eosinophils 1.3 % 0.0 - 4.0 05/24/2017 [facility] Lymphocytes # 2.0 K/CMM 1.0 - 5.5 05/24/2017 [facility] Segs-Bands # 4.9 K/CMM 1.5 - 8.1 05/24/2017 [facility] Monocytes # 0.4 K/CMM 0.0 - 0.8 05/24/2017 [facility] Segs 65.7 % 45.0 - 75.0 05/24/2017 [facility] Lymphocytes 26.9 % 20.0 - 40.0 05/24/2017 [facility] Treponemal Ab Non Reactive *NA* (05/24/17 7:27 AM) Non Reactive 05/24/2017 [facility] IMMUNOLOGY Hep Bs Ag Negative *NA* (05/24/17 7:27 AM) Negative 05/24/2017 [facility] IMMUNOLOGY HIV. Negative *NA* (05/24/17 7:27 AM) Negative 05/24/2017 [facility] age age Patient Name: JEMAL DEL CASTILLO : 1990; Age: 26 years y/o Female MR: [id number] Study: age 305/24/2017 8:16 AM CDT Ordering Physician: Clinical Indication: - for presenting part; Comparison: None Limited central ultrasound examination. Request is for presentation only. A limited transabdominal ultrasound image demonstrates a fetus in cephalic position. No other anatomic or biometric data available. SL: [id number] 05/24/2017 - - Read by: Mina Mathew MD Dictated Date/time: 05/24/17 08:56 Electronically Signed by: Mina Mathew MD 05/24/17 08:57 FINAL REPORT [facility] age age Patient Name: JEMAL DEL CASTILLO : 1990; Age: 26 years y/o Female MR: [id number] Study: age 305/23/2017 11:25 AM CDT Ordering Physician: Clinical Indication: - 39 weeks/pelvic pressure/md requesting weight.; Comparison: Obstetrical ultrasound exam 12/06/2016. Limited obstetrical ultrasound exam There is a single live intrauterine gestation in cephalic position. Biometric parameters concordant at 40 weeks. Biparietal diameter 9.9 cm, 41 weeks 0 day. Head circumference 35.5 cm, 41 week 4 day. Abdomen sacrum was 36.9 cm, 40 week 6 day. Femur length 7.2 cm, 37 weeks 0 day. Estimated due date AUA 05/22/2017. weight 3997 g +/- 584 g. LMP percentile 90%. Fundal placenta without previa. Maternal cervix not specifically visualized. Amniotic fluid index 10.3 cm with largest pocket 5.6 cm. heart rate 152 bpm. anatomic survey not otherwise specifically performed, limited obstetrical ultrasound exam. Maternal uterus, ovaries, adnexa and bladder not otherwise demonstrated. IMPRESSION: 40 weeks single live intrauterine gestation in cephalic position. weight calculated 3997 g +/- 584 g. Normal amniotic fluid volume, placenta. SL: [id number] 05/23/2017 - - Read by: Mina Mathew MD Dictated Date/time: 05/23/17 12:21 Electronically Signed by: Mina Mathew MD 05/23/17 12:25 FINAL REPORT [facility] BLOOD BANK RESULTS ABO/Rh O POS 12/06/2016 [facility] ELECTROLYTES AGAP 12.4 meq/L 10.0 - 20.0 12/06/2016 [facility] ELECTROLYTES eGFR 136 mL/min/1.73m2 12/06/2016 Result Comment: The eGFR is calculated using the [...] from the National Kid[employer] Disease Education Program (NKDEP) which additionally recommends that when the eGFR is used in patients with extremes of body mass index for purposes of drug dosing, the eGFR should be multiplied by the estimated BMI. [facility] ELECTROLYTES CO2 24 meq/L 24 - 32 12/06/2016 [facility] ELECTROLYTES Calcium Lvl 8.8 mg/dL 8.5 - 10.5 12/06/2016 [facility] ELECTROLYTES Chloride Lvl 102 meq/L 95 - 109 12/06/2016 [facility] ELECTROLYTES Potassium Lvl 3.4 meq/L 3.5 - 5.1 12/06/2016 [facility] ELECTROLYTES BUN 9 mg/dL 7 - 22 12/06/2016 [facility] ELECTROLYTES Creatinine Lvl 0.50 mg/dL 0.50 - 1.40 12/06/2016 [facility] ELECTROLYTES Sodium Lvl 135 meq/L 135 - 145 12/06/2016 [facility] ELECTROLYTES Glucose Lvl 99 mg/dL 70 - 99 12/06/2016 [facility] [place] [id number] mIU/mL 12/06/2016 [facility] HEMATOLOGY MPV 7.0 fL 7.4 - 10.4 12/06/2016 [facility] HEMATOLOGY MCH 29.8 pg 27.0 - 31.0 12/06/2016 [facility] HEMATOLOGY MCHC 33.8 g/dL 32.0 - 36.0 12/06/2016 [facility] RDW 12.4 % 11.5 - 14.5 12/06/2016 [facility] Platelet 327 K/CMM 133 - 450 12/06/2016 [facility] MCV 88.1 fL 80.0 - 98.0 12/06/2016 [facility] Hct 34.1 % 36.0 - 48.0 12/06/2016 [facility] RBC 3.87 M/CMM 4.20 - 5.40 12/06/2016 [facility] Hgb 11.5 g/dL 12.0 - 16.0 12/06/2016 [facility] WBC 10.1 K/CMM 3.7 - 10.4 12/06/2016 [facility] Lymphocytes # 1.4 K/CMM 1.0 - 5.5 12/06/2016 [facility] Segs-Bands # 8.2 K/CMM 1.5 - 8.1 12/06/2016 [facility] Monocytes # 0.4 K/CMM 0.0 - 0.8 12/06/2016 [facility] Basophils 0.1 % 0.0 - 1.0 12/06/2016 [facility] Eosinophils # 0.1 K/CMM 0.0 - 0.5 12/06/2016 [facility] Basophils # 0.0 K/CMM 0.0 - 0.2 12/06/2016 [facility] Segs 80.7 % 45.0 - 75.0 12/06/2016 [facility] Lymphocytes 14.2 % 20.0 - 40.0 12/06/2016 [facility] Monocytes 3.8 % 2.0 - 12.0 12/06/2016 [facility] Eosinophils 1.2 % 0.0 - 4.0 12/06/2016 [facility] URINE AND STOOL UA Turbidity Slight *ABN* (12/06/16 3:13 AM) Clear 12/06/2016 [facility] URINE AND STOOL UA Urobilinogen <=1.0 mg/dL 0.1 - 1.0 12/06/2016 [facility] URINE AND STOOL UA Bacteria Occasional /HPF None Seen /HPF 12/06/2016 [facility] URINE AND STOOL UA Mucus Moderate /LPF None Seen /LPF 12/06/2016 [facility] URINE AND STOOL UA Color Yellow 12/06/2016 [facility] URINE AND STOOL UA RBC 1 /HPF 0 - 2 12/06/2016 [facility] URINE AND STOOL UA Leuk Est Trace *ABN* (12/06/16 3:13 AM) Negative 12/06/2016 [facility] URINE AND STOOL UA Sq Epi Many /LPF Few /LPF 12/06/2016 [facility] URINE AND STOOL UA WBC 3 /HPF 0 - 5 12/06/2016 [facility] URINE AND STOOL UA Nitrite Negative (12/06/16 3:13 AM) Negative 12/06/2016 [facility] URINE AND STOOL UA Blood Negative (12/06/16 3:13 AM) Negative 12/06/2016 [facility] URINE AND STOOL UA Glucose Negative mg/dL Negative mg/dL 12/06/2016 [facility] URINE AND STOOL UA Protein Negative mg/dL Negative mg/dL 12/06/2016 [facility] URINE AND STOOL UA Bili Negative *NA* (12/06/16 3:13 AM) Negative 12/06/2016 [facility] URINE AND STOOL UA Ketones Negative mg/dL Negative mg/dL 12/06/2016 [facility] URINE AND STOOL UA pH 5.0 5.0 - 8.0 12/06/2016 [facility] URINE AND STOOL UA Spec Grav 1.024 <=1.030 12/06/2016 [facility] age age CLINICAL HISTORY: Abdominal pain. LMP unknown COMPARISON: Pelvic ultrasound 12/02/2016. TECHNIQUE: Limited transabdominal ultrasound is performed to evaluate for age. FINDINGS: The cervix is 3.9 cm in length. The placenta is posterior. No evidence of placental abruption or previa. The position is cephalic. The heart rate is 156 bpm. BPD: 3.1 cm, consistent with 15 weeks, 5 days. HC: 11.6 cm, consistent with 15 weeks, 5 days. AC: 9.1 cm, consistent with 15 weeks, 2 days. FL: 1.9 cm, consistent with 15 weeks, 6 days. Composite age by current ultrasound: 15 weeks, 5 days. DAPHNE by current ultrasound: 05/25/2017. weight by current ultrasound: 127 grams +/- 19 grams. anatomy not evaluated. The left ovary is normal in morphology and size measuring 3.1 x 2.0 x 2.1 cm. There is Doppler flow within the left ovary. IMPRESSION: 1. Composite age of 15 weeks, 5 days. 2. anatomy not evaluated. A full anatomic survey is recommended at 18-20 weeks gestational age. General observations regarding ultrasound: 1. A normal or negative sonogram report should not delay further investigation of a clinically suspicious or abnormal . 2. position or overlap of parts may prevent complete evaluation of the fetus. 3. Congenital and developmental abnormalities are not always sonographically demonstrable. 4. Repeat sonograms may be necessary depending on the clinical development during . SL: [id number] 12/06/2016 - - Read by: Doyle Crooks MD Dictated Date/time: 12/06/16 05:31 Electronically Signed by: Doyle Crooks MD 12/06/16 05:37 FINAL REPORT [facility] age age EXAM: age ultrasound HISTORY: , pelvic pain COMPARISON: Ultrasound 08/06/2016 TECHNIQUE: Transabdominal grayscale static imaging of the pelvis performed with standard technique. FINDINGS: 1. Single viable intrauterine with sonographic gestational age 14 weeks 5 days. Heart rate 158 bpm. 2. The placenta is posterior, grade 1 with previa. Follow-up can be obtained. 3. Estimated weight 97 g. Estimated date of delivery 05/28/2017. Cervix is closed. 4. Left ovary contains a hemorrhagic corpus luteum. Right ovary not visualized. 5. The bladder is underdistended. SL: [id number] 12/02/2016 - - Read by: Jaxon Rahman MD Dictated Date/time: 12/02/16 16:44 Electronically Signed by: Jaxon Rahman MD 12/02/16 16:48 FINAL REPORT [facility] CHEM PANEL Lipase Lvl 99 unit/L 73 - 393 08/17/2016 [facility] CHEM PANEL Globulin 4.5 g/dL 2.7 - 4.2 08/17/2016 [facility] CHEM PANEL A/G Ratio 0.8 0.7 - 1.6 08/17/2016 [facility] CHEM PANEL B/C Ratio 9 6 - 25 08/17/2016 [facility] CHEM PANEL AGAP 12.0 meq/L 10.0 - 20.0 08/17/2016 [facility] CHEM PANEL eGFR 109 mL/min/1.73m2 08/17/2016 Result Comment: The eGFR is calculated using the [...] from the National Kidney Disease Education Program (NKDEP) which additionally recommends that when the eGFR is used in patients with extremes of body mass index for purposes of drug dosing, the eGFR should be multiplied by the estimated BMI. [facility] CHEM PANEL AST 45 unit/L 0 - 37 08/17/2016 [facility] CHEM PANEL ALT 57 unit/L 0 - 65 08/17/2016 [facility] CHEM PANEL Alk Phos 90 unit/L 39 - 136 08/17/2016 [facility] CHEM PANEL Albumin Lvl 3.7 g/dL 3.5 - 5.0 08/17/2016 [facility] CHEM PANEL CO2 26 meq/L 24 - 32 08/17/2016 [facility] CHEM PANEL Chloride Lvl 100 meq/L 95 - 109 08/17/2016 [facility] CHEM PANEL Bili Total 0.4 mg/dL 0.2 - 1.3 08/17/2016 [facility] CHEM PANEL Total Protein 8.2 g/dL 6.4 - 8.4 08/17/2016 [facility] CHEM PANEL Calcium Lvl 9.0 mg/dL 8.5 - 10.5 08/17/2016 [facility] CHEM PANEL Potassium Lvl 4.0 meq/L 3.5 - 5.1 08/17/2016 [facility] CHEM PANEL Creatinine Lvl 0.76 mg/dL 0.50 - 1.40 08/17/2016 [facility] CHEM PANEL Sodium Lvl 134 meq/L 135 - 145 08/17/2016 [facility] CHEM PANEL Glucose Lvl 120 mg/dL 70 - 99 08/17/2016 [facility] CHEM PANEL BUN 7 mg/dL 7 - 22 08/17/2016 [facility] ENDOCRINOLOGY S Preg Negative *NA* (08/16/16 8:26 PM) Negative 08/17/2016 [facility] HEMATOLOGY Lymphocytes # 0.9 K/CMM 1.0 - 5.5 08/17/2016 [facility] HEMATOLOGY Monocytes # 0.6 K/CMM 0.0 - 0.8 08/17/2016 [facility] HEMATOLOGY Plt Morph Normal (08/16/16 8:26 PM) 08/17/2016 [facility] RBC Morph Normal (08/16/16 8:26 PM) 08/17/2016 [facility] Lymphocytes 6.0 % 20.0 - 40.0 08/17/2016 [facility] Segs 71.0 % 45.0 - 75.0 08/17/2016 [facility] Monocytes 4.0 % 2.0 - 12.0 08/17/2016 [facility] Basophils 1.0 % 0.0 - 1.0 08/17/2016 [facility] HEMATOLOGY Bands 18.0 % 0.0 - 11.0 08/17/2016 [facility] Atypical Lymphs 0.0 % <=0.0 % 08/17/2016 [facility] Basophils # 0.1 K/CMM 0.0 - 0.2 08/17/2016 [facility] Segs-Bands # 13.0 K/CMM 1.5 - 8.1 08/17/2016 [facility] MCHC 33.3 g/dL 32.0 - 36.0 08/17/2016 [facility] RDW 12.3 % 11.5 - 14.5 08/17/2016 [facility] Platelet 298 K/CMM 133 - 450 08/17/2016 [facility] MPV 7.8 fL 7.4 - 10.4 08/17/2016 [facility] RBC 4.25 M/CMM 4.20 - 5.40 08/17/2016 [facility] MCH 29.8 pg 27.0 - 31.0 08/17/2016 [facility] WBC 14.6 K/CMM 3.7 - 10.4 08/17/2016 [facility] Hct 38.1 % 36.0 - 48.0 08/17/2016 [facility] MCV 89.5 fL 80.0 - 98.0 08/17/2016 [facility] Hgb 12.7 g/dL 12.0 - 16.0 08/17/2016 [facility] URINE AND STOOL UA Color Yellow 08/17/2016 [facility] URINE AND STOOL UA Urobilinogen <=1.0 mg/dL 0.1 - 1.0 08/17/2016 [facility] URINE AND STOOL UA Glucose Negative mg/dL Negative mg/dL 08/17/2016 [facility] URINE AND STOOL UA Protein Negative mg/dL Negative mg/dL 08/17/2016 [facility] URINE AND STOOL UA Mucus Few /LPF None Seen /LPF 08/17/2016 [facility] URINE AND STOOL UA pH 6.0 5.0 - 8.0 08/17/2016 [facility] URINE AND STOOL UA Turbidity Slight *ABN* (08/16/16 8:26 PM) Clear 08/17/2016 [facility] URINE AND STOOL UA Spec Grav 1.021 <=1.030 08/17/2016 [facility] URINE AND STOOL UA Leuk Est Trace *ABN* (08/16/16 8:26 PM) Negative 08/17/2016 [facility] URINE AND STOOL UA Nitrite Negative (08/16/16 8:26 PM) Negative 08/17/2016 [facility] URINE AND STOOL UA Bacteria Occasional /HPF None Seen /HPF 08/17/2016 [facility] URINE AND STOOL UA RBC null 0 - 2 08/17/2016 [facility] URINE AND STOOL UA WBC 3 /HPF 0 - 5 08/17/2016 [facility] URINE AND STOOL UA Sq Epi Many /LPF Few /LPF 08/17/2016 [facility] URINE AND STOOL UA Bili Negative *NA* (08/16/16 8:26 PM) Negative 08/17/2016 [facility] URINE AND STOOL UA Blood Negative (08/16/16 8:26 PM) Negative 08/17/2016 [facility] URINE AND STOOL UA Ketones Negative mg/dL Negative mg/dL 08/17/2016 [facility] Pelvis w Transvag and Pelvis Doppler US Pelvis w Transvag and Pelvis Doppler US US PELVIS History: Pelvic pain Comments: Transabdominal pelvic ultrasound performed. Transvaginal pelvic ultrasound also performed for better visualization of pelvic structures. Retroverted uterus is normal in size measuring 9.8 x 6.2 x 5.8 cm. Endometrium is within normal limits measuring 5 mm. No uterine fibroids. Right ovary measures 3.9 x 2.4 x 2.3 cm. Left ovary measures 5.2 x 2.9 x 3 cm. There is a 2.6 cm unilocular cyst in the left ovary and 2.4 cm unilocular cyst in the right ovary, likely functional cysts. Vascular flow seen in bilateral ovaries. Impression: No ovarian torsion. Bilateral ovarian cysts likely functional cysts. Confirmation can be obtained by 4-6 week follow-up ultrasound. 08/16/2016 - - Read by: Shantel Smith MD Dictated Date/time: 08/16/16 23:48 Electronically Signed by: Shantel Smith MD 08/17/16 00:01 FINAL REPORT [facility] Abdomen/Pelvis w IV contrast CT Abdomen/Pelvis w IV contrast CT Study: CT ABDOMEN AND PELVIS WITH CONTRAST Clinical Indication: Acute abdominal pain - suspect appendicitis on exam, lower abdominal pain. Comparison: Pelvic ultrasound 03/05/2016 Technique: Axial images with sagittal and coronal reconstructions were obtained following oral and nonionic intravenous contrast, Omnipaque [address] Radiation Dose: THI=[id number] mGy-cm. FINDINGS: The lung bases are clear. There is fatty infiltration of the liver. The gallbladder, common duct and spleen appear normal. The kidneys, adrenals and pancreas are normal. No intestinal lesion or mesenteric inflammatory change is noted. The appendix is normal. 2.7 cm right ovarian cyst is noted. There is also a 2.4 cm left ovarian cyst. Endometrium is prominent, likely related to the menstrual cycle. No adenopathy is seen. There is a trace amount of cul-de-sac fluid. IMPRESSION: 1. Normal appendix. 2. Fatty liver. 3. Small adnexal cysts. SL: [id number] 08/16/2016 - - Read by: Caden Weinstein MD Dictated Date/time: 08/16/16 22:39 Electronically Signed by: Caden Weinstein MD 08/16/16 22:44 FINAL REPORT [facility] Pelvis w Pelvis Transvaginal US Pelvis w Pelvis Transvaginal US Patient Name: JEMAL DEL CASTILLO : 1990; Age: 25 years y/o Female MR: [id number] Study: Pelvis w Pelvis Transvaginal US 03/05/2016 1:10 PM [employer] Ordering Physician: ANGELO COWAN Clinical Indication: enlarged uterus, HCG negative; Comparison: None US PELVIS Technique: Grayscale, color and Doppler transabdominal and transvaginal imaging of the pelvis was performed with standard technique. FINDINGS: TRANSABDOMINAL PELVIC ULTRASOUND: UTERUS: The transabdominal pelvic ultrasound evaluation of the uterus shows that the retroverted uterus measures 10.3 cm x 5.4 cm x 5.9 cm in size. The uterine parenchyma is not well assessed on the transabdominal pelvic ultrasound. OVARIES: The ovaries are not well seen on the transabdominal portion of the exam, related to bowel gas in the pelvis. OTHER FINDINGS: The transabdominal sonographic images show no free fluid in the pelvic cul-de-sac. IMPRESSION: 1. Limited assessment of the uterine parenchyma and ovaries on the transabdominal pelvic ultrasound, related to bowel gas in the pelvis. This necessitated a pelvic transvaginal ultrasound. Recommend correlation with the transvaginal pelvic ultrasound report. TRANSVAGINAL PELVIC ULTRASOUND: UTERUS: The pelvic transvaginal sonographic images show normal uterine contour and morphology. There is normal parenchymal echotexture. The endometrial stripe measures 7.1 mm in thickness. Nabothian cyst is present. OVARIES: The transvaginal pelvic sonographic images show that the right ovary measures 4.4 cm x 2.2 cm x 2.4 cm and the left ovary measures 3.5 cm x 2.1 cm x 2.0 cm. There are no adnexal masses. If there is further concern, followup pelvic sonography or MRI of the pelvis may be performed. IMPRESSION: 1. Heterogeneous mildly enlarged uterus. No definite fibroid. 2. Grossly normal ovaries. SL: [id number] 03/05/2016 - - Read by: Barney Friedman MD Dictated Date/time: 03/05/16 16:31 Electronically Signed by: Barney Friedman MD 03/05/16 16:33 FINAL REPORT [facility] ELECTROLYTES AGAP 9.7 meq/L 10.0 - 20.0 10/30/2015 [facility] ELECTROLYTES eGFR 125 mL/min/1.73m2 10/30/2015 Result Comment: The eGFR is calculated using the [...] from the National Kidney Disease Education Program (NKDEP) which additionally recommends that when the eGFR is used in patients with extremes of body mass index for purposes of drug dosing, the eGFR should be multiplied by the estimated BMI. [facility] ELECTROLYTES Chloride Lvl 102 meq/L 95 - 109 10/30/2015 [facility] ELECTROLYTES CO2 28 meq/L 24 - 32 10/30/2015 [facility] ELECTROLYTES Calcium Lvl 8.9 mg/dL 8.5 - 10.5 10/30/2015 [facility] ELECTROLYTES Glucose Lvl 90 mg/dL 70 - 99 10/30/2015 [facility] ELECTROLYTES Sodium Lvl 136 meq/L 135 - 145 10/30/2015 [facility] ELECTROLYTES BUN 13 mg/dL 7 - 22 10/30/2015 [facility] ELECTROLYTES Creatinine Lvl 0.66 mg/dL 0.50 - 1.40 10/30/2015 [facility] ELECTROLYTES Potassium Lvl 3.7 meq/L 3.5 - 5.1 10/30/2015 [facility] HEMATOLOGY MPV 7.4 fL 7.4 - 10.4 10/30/2015 [facility] HEMATOLOGY Platelet 290 K/CMM 133 - 450 10/30/2015 [facility] HEMATOLOGY RBC 4.21 M/CMM 4.20 - 5.40 10/30/2015 [facility] HEMATOLOGY Hgb 12.6 g/dL 12.0 - 16.0 10/30/2015 [facility] WBC 6.0 K/CMM 3.7 - 10.4 10/30/2015 [facility] Hct 37.1 % 36.0 - 48.0 10/30/2015 [facility] MCHC 33.9 g/dL 32.0 - 36.0 10/30/2015 [facility] MCV 88.2 fL 80.0 - 98.0 10/30/2015 [facility] MCH 29.9 pg 27.0 - 31.0 10/30/2015 [facility] HEMATOLOGY RDW 12.0 % 11.5 - 14.5 10/30/2015 [facility] Basophils # 0.0 K/CMM 0.0 - 0.2 10/30/2015 [facility] HEMATOLOGY Segs-Bands # 4.2 K/CMM 1.5 - 8.1 10/30/2015 [facility] HEMATOLOGY Lymphocytes # 1.3 K/CMM 1.0 - 5.5 10/30/2015 [facility] HEMATOLOGY Monocytes # 0.4 K/CMM 0.0 - 0.8 10/30/2015 [facility] HEMATOLOGY Eosinophils # 0.1 K/CMM 0.0 - 0.5 10/30/2015 [facility] Eosinophils 0.9 % 0.0 - 4.0 10/30/2015 [facility] HEMATOLOGY Basophils 0.0 % 0.0 - 1.0 10/30/2015 [facility] HEMATOLOGY Lymphocytes 22.3 % 20.0 - 40.0 10/30/2015 [facility] HEMATOLOGY Monocytes 7.2 % 2.0 - 12.0 10/30/2015 [facility] HEMATOLOGY Segs 69.6 % 45.0 - 75.0 10/30/2015 [facility] URINE AND STOOL UA Spec Grav 1.015 <=1.030 10/30/2015 [facility] URINE AND STOOL UA Leuk Est Large *ABN* (10/29/15 9:41 PM) Negative 10/30/2015 [facility] URINE AND STOOL UA Nitrite Positive *ABN* (10/29/15 9:41 PM) Negative 10/30/2015 [facility] URINE AND STOOL UA Urobilinogen >=8.0 EU/dL 0.1 - 1.0 10/30/2015 [facility] URINE AND STOOL UA Blood Trace *ABN* (10/29/15 9:41 PM) Negative 10/30/2015 [facility] URINE AND STOOL UA Turbidity Clear (10/29/15 9:41 PM) Clear 10/30/2015 [facility] URINE AND STOOL UA Bili Moderate *ABN* (10/29/15 9:41 PM) Negative 10/30/2015 [facility] URINE AND STOOL UA Ketones Trace *ABN* (10/29/15 9:41 PM) Negative 10/30/2015 [facility] URINE AND STOOL UA Glucose 250 mg/dL Negative mg/dL 10/30/2015 [facility] URINE AND STOOL UA pH 7.0 5.0 - 8.0 10/30/2015 [facility] URINE AND STOOL UA Protein 100 mg/dL Negative mg/dL 10/30/2015 [facility] URINE AND STOOL UA Color Yellow *NA* (10/29/15 9:41 PM) Yellow 10/30/2015 [facility] URINE AND STOOL UA Amorph Masha Moderate /HPF None Seen /HPF 10/30/2015 [facility] URINE AND STOOL UA WBC 11-20 /HPF None Seen /HPF 10/30/2015 [facility] URINE AND STOOL UA Sq Epi Moderate /LPF Few /LPF 10/30/2015 [facility] URINE AND STOOL UA RBC 3-5 /HPF 0 - 2 10/30/2015 [facility] URINE AND STOOL UA Mucus Few /LPF None Seen /LPF 10/30/2015 [facility] URINE AND STOOL UA Bacteria Occasional /HPF None Seen /HPF 10/30/2015 [facility] URINE CHEM U Preg Negative (10/29/15 9:41 PM) Negative 10/30/2015 [facility] MOLECULAR DIAGNOSTIC N gonorrhea by Amp Det (APTIMA) Negative *NA* (11/01/14 11:37 AM) Negative 11/01/2014 [facility] MOLECULAR DIAGNOSTIC C trachomatis by Amp Det (APTIMA) Negative *NA* (11/01/14 11:37 AM) Negative 11/01/2014 [facility] MOLECULAR DIAGNOSTIC Source APTIMA Endocervix *NA* (11/01/14 11:37 AM) 11/01/2014 [facility] ELECTROLYTES AGAP 9.2 meq/L 10.0 - 20.0 11/01/2014 [facility] ELECTROLYTES B/C Ratio 13 6 - 25 11/01/2014 [facility] ELECTROLYTES Globulin 3.9 g/dL 2.0 - 4.0 11/01/2014 [facility] ELECTROLYTES A/G Ratio 1.0 0.7 - 1.6 11/01/2014 [facility] ELECTROLYTES eGFR 123 mL/min/1.73m2 11/01/2014 Result Comment: The eGFR is calculated using the [...] from the National Kidney Disease Education Program (NKDEP) which additionally recommends that when the eGFR is used in patients with extremes of body mass index for purposes of drug dosing, the eGFR should be multiplied by the estimated BMI. [facility] ELECTROLYTES Creatinine Lvl 0.7 mg/dL 0.5 - 1.4 11/01/2014 [facility] ELECTROLYTES Sodium Lvl 139 meq/L 135 - 145 11/01/2014 [facility] ELECTROLYTES Glucose Lvl 102 mg/dL 70 - 99 11/01/2014 [facility] ELECTROLYTES Total Protein 7.9 g/dL 6.4 - 8.4 11/01/2014 [facility] ELECTROLYTES Albumin Lvl 4.0 g/dL 3.5 - 5.0 11/01/2014 [facility] ELECTROLYTES Potassium Lvl 3.2 meq/L 3.5 - 5.1 11/01/2014 [facility] ELECTROLYTES ALT 14 unit/L 0 - 65 11/01/2014 [facility] ELECTROLYTES AST 4 unit/L 0 - 37 11/01/2014 [facility] ELECTROLYTES Alk Phos 80 unit/L 39 - 136 11/01/2014 [facility] ELECTROLYTES BUN 9 mg/dL 7 - 22 11/01/2014 [facility] ELECTROLYTES Chloride Lvl 105 meq/L 95 - 109 11/01/2014 [facility] ELECTROLYTES CO2 28 meq/L 24 - 32 11/01/2014 [facility] ELECTROLYTES Calcium Lvl 9.0 mg/dL 8.5 - 10.5 11/01/2014 [facility] ELECTROLYTES Bili Total 0.3 mg/dL 0.2 - 1.3 11/01/2014 [facility] ENDOCRINOLOGY hCG Tot 707 mIU/mL 11/01/2014 [facility] HEMATOLOGY Basophils # 0.0 K/CMM 0.0 - 0.2 11/01/2014 [facility] HEMATOLOGY Monocytes # 0.4 K/CMM 0.0 - 0.8 11/01/2014 [facility] HEMATOLOGY Eosinophils # 0.0 K/CMM 0.0 - 0.5 11/01/2014 [facility] HEMATOLOGY Lymphocytes # 1.4 K/CMM 1.0 - 5.5 11/01/2014 [facility] HEMATOLOGY Segs-Bands # 5.0 K/CMM 1.5 - 8.1 11/01/2014 [facility] HEMATOLOGY Eosinophils 0.3 % 0.0 - 4.0 11/01/2014 [facility] HEMATOLOGY Monocytes 5.4 % 2.0 - 12.0 11/01/2014 [facility] HEMATOLOGY Segs 73.4 % 45.0 - 75.0 11/01/2014 [facility] HEMATOLOGY Basophils 0.3 % 0.0 - 1.0 11/01/2014 [facility] HEMATOLOGY Lymphocytes 20.6 % 20.0 - 40.0 11/01/2014 [facility] HEMATOLOGY MCH 28.4 pg 27.0 - 31.0 11/01/2014 [facility] MCHC 32.5 g/dL 32.0 - 36.0 11/01/2014 [facility] HEMATOLOGY RDW 13.4 % 11.5 - 14.5 11/01/2014 [facility] MPV 7.8 fL 7.4 - 10.4 11/01/2014 [facility] HEMATOLOGY Platelet 283 K/CMM 133 - 450 11/01/2014 [facility] HEMATOLOGY RBC 3.85 M/CMM 4.20 - 5.40 11/01/2014 [facility] HEMATOLOGY WBC 6.8 K/CMM 3.7 - 10.4 11/01/2014 [facility] HEMATOLOGY Hgb 10.9 g/dL 12.0 - 16.0 11/01/2014 [facility] HEMATOLOGY Hct 33.6 % 36.0 - 48.0 11/01/2014 [facility] HEMATOLOGY MCV 87.3 fL 80.0 - 98.0 11/01/2014 [facility] URINE AND STOOL UA Color Yellow *NA* (11/01/14 10:00 AM) Yellow 11/01/2014 [facility] URINE AND STOOL UA Urobilinogen 0.2 EU/dL 0.1 - 1.0 11/01/2014 [facility] URINE AND STOOL UA Blood Large *ABN* (11/01/14 10:00 AM) Negative 11/01/2014 [facility] URINE AND STOOL UA Nitrite Negative (11/01/14 10:00 AM) Negative 11/01/2014 [facility] URINE AND STOOL UA Leuk Est Trace *ABN* (11/01/14 10:00 AM) Negative 11/01/2014 [facility] URINE AND STOOL UA Glucose Negative (11/01/14 10:00 AM) Negative 11/01/2014 [facility] URINE AND STOOL UA Ketones Negative *NA* (11/01/14 10:00 AM) Negative 11/01/2014 [facility] URINE AND STOOL UA Bili Negative *NA* (11/01/14 10:00 AM) Negative 11/01/2014 [facility] URINE AND STOOL UA Turbidity Clear (11/01/14 10:00 AM) Clear 11/01/2014 [facility] URINE AND STOOL UA Spec Grav 1.025 <=1.030 11/01/2014 [facility] URINE AND STOOL UA pH 6.5 5.0 - 8.0 11/01/2014 [facility] URINE AND STOOL UA Protein Trace *ABN* (11/01/14 10:00 AM) Negative 11/01/2014 [facility] URINE AND STOOL UA Mucus Many /LPF None Seen /LPF 11/01/2014 [facility] URINE AND STOOL UA WBC 6-10 /HPF None Seen /HPF 11/01/2014 [facility] URINE AND STOOL UA RBC >100 /HPF 0 - 2 11/01/2014 [facility] URINE AND STOOL UA Bacteria Few /HPF None Seen /HPF 11/01/2014 [facility] [facility] URINE AND STOOL UA Sq Epi Few /LPF Few /LPF 11/01/2014 [facility] Preg < 14wks Single gest w Transvag US Preg < 14wks Single gest w Transvag US NAME: JEMAL DEL CASTILLO : 1990 SEX: F Ordering Physician: Susy Palacios Transabdominal and endovaginal ultrasound of the pelvis : Nov 01, 2014 10:46:00 AM. CLINICAL INDICATION: Vaginal Bleeding. Positive beta-hCG. Comparison Examination: None. FINDINGS: Transabdominal ultrasound: The maternal bladder is not well distended. The uterus measures 9.4 x 5.8 x 5.6 cm. Intrauterine is not identified transabdominally. The endometrial stripe measures 1.8 cm in full width thickness. The left ovary measures 2.7 x 2.1 x 2.2 cm and contains a small cystic area. The right ovary is not identified transabdominally. Endovaginal ultrasound: Small nabothian cyst. There is a small cystic area in the endometrial cavity measuring 8 x 3 x 4 mm. This gives a mean sac diameter of 5 mm. Yolk sac is identified. pole not seen but not unusual for a sac of this size. The right ovary sonographically normal measuring 2.6 x 1.8 x 1.7 cm. The left ovary measures 3.1 x 1.7 x 1.6 cm and contains a heterogeneous hypoechoic area with irregular central cystic area. This lesion spans 2.3 x 1.7 x 1.7 cm and likely represents a corpus luteal cyst. No free fluid identified in the pelvis. The endometrial stripe measures 2.4 cm in full width thickness. CONCLUSIONS: 1. Intrauterine with gestational sac size corresponding to 5 weeks 0 days. Yolk sac identified. pole not seen but not unusual for a sac of this size. Follow-up pelvic ultrasound in one week may be helpful to determine viability of the . 2. Probable corpus luteal cyst left ovary as above. 3. Right ovary sonographically normal. 4. No free fluid in the pelvis. SL: 14 11/01/2014 - - Read by: Gareth Hamlin MD Dictated Date/time: 11/01/14 11:07 Electronically Signed by: Gareth Hamlin MD 11/01/14 11:11 FINAL REPORT [facility] complete Single Gestation US complete Single Gestation US ULTRASOUND CLINICAL HISTORY: size and date COMPARISON IMAGING: None. TECHNIQUE: Transabdominal sonography was performed by an special procedures technologist, and static images were submitted for review. FINDINGS: Single live gestation. Presentation: Cephalic. Heart rate: 152 bpm. BERNA: 15.6 cm. Placenta: Position: left lateral No previa or abruption. Cervix: Closed and approximately 4.4 cm in length. Anatomical Survey: Cerebral ventricles: Unremarkable. Cerebellum: Unremarkable. Face: Unremarkable. Four-chamber heart: Unremarkable. Spine: Unremarkable. Stomach: Unremarkable. Bladder: Unremarkable. Kidneys: Unremarkable. Four extremities: Unremarkable. Umbilical cord: 3 vessels, normal insertion. Biometry: BPD: 4.3 cm (19w 0d) HC: 16.3 cm (19w 1d) AC: 13.95 cm ( 19 w 3 d) FL: 2.9 cm ( 18 w 6d) Ratios (%) FL/AC: 21 (20-24) FL/BPD: 67 (71-87) HC/AC: 1.17 (1.07-1.29) EFW: 273 +/- 40 grams Clinical (LMP): GA: 17 w 4d DAPHNE: 08/26/2013 Ultrasound: AUA: 19w 1d DAPHNE: 08/15/2013 IMPRESSION: 1. Single viable intrauterine . 2. No acute abnormality. 3. Please see above for details. 03/22/2013 - - Read by: Mercedes Calderon Dictated Date/time: 03/22/13 16:38 Electronically Signed by: Mercedes Calderon , 03/22/13 17:08 FINAL REPORT ASHVIN Lombardo Vital Signs Vital Sign Value Date Comments Source Systolic (mm Hg) 119 05/27/2017 [facility] Diastolic (mm Hg) 80 05/27/2017 [facility] Respitory Rate 18 05/27/2017 [facility] Heart Rate 77 05/27/2017 [facility] Temperature Oral (F) 98.7 F 05/27/2017 [facility] Systolic (mm Hg) 129 05/27/2017 [facility] Diastolic (mm Hg) 84 05/27/2017 [facility] Heart Rate 74 05/27/2017 [facility] Respitory Rate 18 05/27/2017 [facility] Temperature Oral (F) 97.9 F 05/27/2017 [facility] Respitory Rate 18 05/26/2017 [facility] Systolic (mm Hg) 103 05/26/2017 [facility] Diastolic (mm Hg) 64 05/26/2017 [facility] Temperature Oral (F) 97.9 F 05/26/2017 [facility] Heart Rate 74 05/26/2017 [facility] Height 165.1 cm 05/24/2017 [facility] Weight 109.091 05/24/2017 [facility] BMI Calculated 40.02 05/24/2017 [facility] Height 165.1 cm 05/23/2017 [facility] Weight 108.182 05/23/2017 [facility] BMI Calculated 39.69 05/23/2017 [facility] Systolic (mm Hg) 124 05/17/2017 [facility] Diastolic (mm Hg) 79 05/17/2017 [facility] Systolic (mm Hg) 121 05/17/2017 [facility] Diastolic (mm Hg) 85 05/17/2017 [facility] Systolic (mm Hg) 121 05/17/2017 [facility] Diastolic (mm Hg) 78 05/17/2017 [facility] BMI Calculated 39.95 05/17/2017 [facility] Weight 108.909 05/17/2017 [facility] Height 165.1 cm 05/17/2017 [facility] Heart Rate 97 05/17/2017 [facility] Temperature Oral (F) 98.2 F 05/17/2017 [facility] Respitory Rate 16 05/17/2017 [facility] Systolic (mm Hg) 119 05/11/2017 [facility] Diastolic (mm Hg) 78 05/11/2017 [facility] Systolic (mm Hg) 137 05/11/2017 [facility] Diastolic (mm Hg) 81 05/11/2017 [facility] BMI Calculated 39.02 05/11/2017 [facility] Heart Rate 96 05/11/2017 [facility] Weight 106.364 05/11/2017 [facility] Temperature Oral (F) 98.8 F 05/11/2017 [facility] Respitory Rate 19 05/11/2017 [facility] Height 165.1 cm 05/11/2017 [facility] Systolic (mm Hg) 135 05/11/2017 [facility] Diastolic (mm Hg) 84 05/11/2017 [facility] Systolic (mm Hg) 125 12/06/2016 [facility] Diastolic (mm Hg) 75 12/06/2016 [facility] Heart Rate 98 12/06/2016 [facility] Temperature Oral (F) 98.8 F 12/06/2016 [facility] Respitory Rate 20 12/06/2016 [facility] Temperature Oral (F) 98.9 F 12/06/2016 [facility] Respitory Rate 20 12/06/2016 [facility] BMI Calculated 35.02 12/06/2016 [facility] Height 165.1 cm 12/06/2016 [facility] Weight 95.455 12/06/2016 [facility] Systolic (mm Hg) 126 12/06/2016 [facility] Diastolic (mm Hg) 88 12/06/2016 [facility] Heart Rate 102 12/06/2016 [facility] Respitory Rate 22 12/02/2016 [facility] Temperature Oral (F) 99.1 F 12/02/2016 [facility] Systolic (mm Hg) 108 12/02/2016 [facility] Diastolic (mm Hg) 68 12/02/2016 [facility] Heart Rate 115 12/02/2016 [facility] Weight 90.909 12/02/2016 [facility] Respitory Rate 20 08/17/2016 [facility] Heart Rate 106 08/17/2016 [facility] Temperature Oral (F) 100 F 08/17/2016 [facility] Systolic (mm Hg) 112 08/17/2016 [facility] Diastolic (mm Hg) 78 08/17/2016 [facility] BMI Calculated 34.19 08/16/2016 [facility] Weight 93.182 08/16/2016 [facility] Height 165.1 cm 08/16/2016 [facility] Respitory Rate 20 08/16/2016 [facility] Temperature Oral (F) 99.6 F 08/16/2016 [facility] Heart Rate 103 08/16/2016 [facility] Systolic (mm Hg) 125 08/16/2016 [facility] Diastolic (mm Hg) 83 08/16/2016 [facility] Respitory Rate 17 10/30/2015 [facility] Systolic (mm Hg) 123 10/30/2015 [facility] Diastolic (mm Hg) 87 10/30/2015 [facility] Heart Rate 76 10/30/2015 [facility] Systolic (mm Hg) 117 10/30/2015 [facility] Diastolic (mm Hg) 71 10/30/2015 [facility] Heart Rate 71 10/30/2015 [facility] Respitory Rate 16 10/30/2015 [facility] Systolic (mm Hg) 121 10/30/2015 [facility] Diastolic (mm Hg) 78 10/30/2015 [facility] Respitory Rate 18 10/30/2015 [facility] Heart Rate 76 10/30/2015 [facility] Height 165.1 cm 10/30/2015 [facility] Weight 88.636 10/30/2015 [facility] BMI Calculated 32.52 10/30/2015 [facility] Temperature Oral (F) 99.6 F 10/30/2015 [facility] Systolic (mm Hg) 130 11/01/2014 [facility] Diastolic (mm Hg) 84 11/01/2014 [facility] Heart Rate 76 11/01/2014 [facility] Respitory Rate 20 11/01/2014 [facility] BMI Calculated 28.02 11/01/2014 [facility] Height 165.1 cm 11/01/2014 [facility] Heart Rate 75 11/01/2014 [facility] Respitory Rate 18 11/01/2014 [facility] Temperature Oral (F) 97.5 F 11/01/2014 [facility] Weight 76.364 11/01/2014 [facility] Systolic (mm Hg) 126 11/01/2014 [facility] Diastolic (mm Hg) 82 11/01/2014 [facility] Encounters Location Location Details Encounter Type Encounter Number Reason For Visit Attending Provider ADM Date DC Date Status Source OD [id number] 649.6 - UTERINE SIZE DT GABRIELLE DIA 03/22/2013 03/22/2013 Active [facility] [id number] Nikki Phan 11/01/2014 11/01/2014 [facility] Emergency [id number] Sofia Lange 10/30/2015 10/30/2015 [facility] Outpatient Imaging [facility] [id number] ANGELO COWAN 03/05/2016 03/06/2016 [facility] Emergency [id number] Rolando Salguero 08/16/2016 08/17/2016 [facility] Emergency [id number] Tee Hensley 12/02/2016 12/03/2016 [facility] Emergency [id number] Tomer Diamond 12/06/2016 12/06/2016 [facility] Emergency [id number] Tyler Spears 05/11/2017 05/11/2017 [facility] Emergency [id number] Glory Espinosa 05/17/2017 05/17/2017 [facility] Observation [id number] Hoda Aggarwal 05/23/2017 05/23/2017 [facility] Inpatient [id number] Hoda Aggarwal 05/24/2017 05/27/2017 [facility] Procedures Procedure Code Date Perfomer Comments Source
--- OUTSIDE RECORDS SUMMARY | 2018-02-17 20:45 | XMS REPORT | Summary of Care ---
Author Author [facility] Organization [facility] Address Unknown Phone Unavailable Encounter PAT Graff(KELLEY) [id number] Date(s): 11/01/14 - 11/01/14 [facility] [address] [place] [address]- [phone] Discharge Diagnosis: Threatened in first trimester Discharge Disposition: Home Attending Physician: Nikki Phan MD Vital Signs Most recent to 1 2 oldest [Reference Range]: Height 165.1 cm (11/01/14 9:28 AM) Most recent to 1 2 oldest [Reference Range]: Temperature Oral 97.5 DegF [96.4-99.1 DegF] (11/01/14 9:28 AM) Most recent to 1 2 oldest [Reference Range]: Blood Pressure 130/84 mmHg 126/82 mmHg [90-140/60-90 mmHg] (11/01/14 12:52 PM) (11/01/14 9:28 AM) Most recent to 1 2 oldest [Reference Range]: Respiratory Rate 20 BRMIN 18 BRMIN [14-20 BRMIN] (11/01/14 12:52 PM) (11/01/14 9:28 AM) Most recent to 1 2 oldest [Reference Range]: Peripheral Pulse 76 bpm 75 bpm Rate [60-100 bpm] (11/01/14 12:52 PM) (11/01/14 9:28 AM) Most recent to 1 2 oldest [Reference Range]: Weight 76.364 kg (11/01/14 9:28 AM) Most recent to 1 2 oldest [Reference Range]: Body Mass Index 28.02 m2 (11/01/14 9:28 AM) Problem List Condition Effective Dates Status Health Status Informant Miscarriage(Confirme Resolved d) Allergies, Adverse Reactions, Alerts Substance Reaction Severity Status NKDA Active Medications Flagyl 500 mg oral tablet 500 mg=1 tab, PO, BID, X 7 day, # 14 tab, 0 Refill(s) Start Date: 11/01/14 Stop Date: 11/08/14 Status: Ordered Saline Flush 0.9% 10 mL, Route: IVP, Drug Form: INJ, Dosing Weight 76.364, kg, PRN, PRN Line Flush , Start date: 11/01/14 9:52:00, Duration: 30 day, Stop date: 12/01/14 9:51:00 Notes: (Same as: BD Posiflush) Start Date: 11/01/14 Stop Date: 11/01/14 Status: Discontinued Results ELECTROLYTES Most recent to 1 oldest [Reference Range]: Sodium Lvl [135-145 139 mEq/L mEq/L] (11/01/14 10:00 AM) Potassium Lvl 3.2 mEq/L [3.5-5.1 mEq/L] *LOW* (11/01/14 10:00 AM) Chloride Lvl [95-109 105 mEq/L mEq/L] (11/01/14 10:00 AM) CO2 [24-32 mEq/L] 28 mEq/L (11/01/14 10:00 AM) AGAP [10.0-20.0 9.2 mEq/L mEq/L] *LOW* (11/01/14 10:00 AM) CHEM PANEL Most recent to 1 oldest [Reference Range]: Creatinine Lvl 0.7 mg/dL [0.5-1.4 mg/dL] (11/01/14 10:00 AM) eGFR 123 mL/min/1.73m2 1 *NA* (11/01/14 10:00 AM) BUN [7-22 mg/dL] 9 mg/dL (11/01/14 10:00 AM) B/C Ratio [6-25] 13 (11/01/14 10:00 AM) Glucose Lvl [70-99 102 mg/dL mg/dL] *HI* (11/01/14 10:00 AM) Total Protein 7.9 g/dL [6.4-8.4 g/dL] (11/01/14 10:00 AM) Albumin Lvl [3.5-5.0 4.0 g/dL g/dL] (11/01/14 10:00 AM) Globulin [2.0-4.0 3.9 g/dL g/dL] (11/01/14 10:00 AM) A/G Ratio [0.7-1.6] 1.0 (11/01/14 10:00 AM) Calcium Lvl 9.0 mg/dL [8.5-10.5 mg/dL] (11/01/14 10:00 AM) ALT [0-65 unit/L] 14 unit/L (11/01/14 10:00 AM) AST [0-37 unit/L] 4 unit/L (11/01/14 10:00 AM) Alk Phos [39-136 80 unit/L unit/L] (11/01/14 10:00 AM) Bili Total [0.2-1.3 0.3 mg/dL mg/dL] (11/01/14 10:00 AM) 1Result Comment: The eGFR is calculated [...] to 1 oldest [Reference Range]: hCG Tot 707 mIU/mL *NA* (11/01/14 10:00 AM) URINE AND STOOL Most recent to 1 oldest [Reference Range]: UA Turbidity [Clear] Clear (11/01/14 10:00 AM) UA Color [Yellow] Yellow *NA* (11/01/14 10:00 AM) UA pH [5.0-8.0] 6.5 (11/01/14 10:00 AM) UA Spec Grav 1.025 [<=1.030] (11/01/14 10:00 AM) UA Glucose Negative [Negative] (11/01/14 10:00 AM) UA Blood [Negative] Large *ABN* (11/01/14 10:00 AM) UA Ketones Negative [Negative] *NA* (11/01/14 10:00 AM) UA Protein Trace [Negative] *ABN* (11/01/14 10:00 AM) UA Urobilinogen 0.2 EU/dL [0.1-1.0 EU/dL] (11/01/14 10:00 AM) UA Bili [Negative] Negative *NA* (11/01/14 10:00 AM) UA Leuk Est Trace [Negative] *ABN* (11/01/14 10:00 AM) UA Nitrite Negative [Negative] (11/01/14 10:00 AM) UA WBC [None Seen 6-10 /HPF /HPF] *ABN* (11/01/14 10:00 AM) UA RBC [0-2 /HPF] >100 /HPF *ABN* (11/01/14 10:00 AM) UA Bacteria [None Few /HPF Seen /HPF] (11/01/14 10:00 AM) UA Sq Epi [Few /LPF] Few /LPF (11/01/14 10:00 AM) UA Mucus [None Seen Many /LPF /LPF] *ABN* (11/01/14 10:00 AM) HEMATOLOGY Most recent to 1 oldest [Reference Range]: WBC [3.7-10.4 K/CMM] 6.8 K/CMM (11/01/14 10:00 AM) RBC [4.20-5.40 3.85 M/CMM M/CMM] *LOW* (11/01/14 10:00 AM) Hgb [12.0-16.0 g/dL] 10.9 g/dL *LOW* (11/01/14 10:00 AM) Hct [36.0-48.0 %] 33.6 % *LOW* (11/01/14 10:00 AM) MCV [80.0-98.0 fL] 87.3 fL (11/01/14 10:00 AM) MCH [27.0-31.0 pg] 28.4 pg (11/01/14 10:00 AM) MCHC [32.0-36.0 32.5 g/dL g/dL] (11/01/14 10:00 AM) RDW [11.5-14.5 %] 13.4 % (11/01/14 10:00 AM) Platelet [133-450 283 K/CMM K/CMM] (11/01/14 10:00 AM) MPV [7.4-10.4 fL] 7.8 fL (11/01/14 10:00 AM) Segs [45.0-75.0 %] 73.4 % (11/01/14 10:00 AM) Lymphocytes 20.6 % [20.0-40.0 %] (11/01/14 10:00 AM) Monocytes [2.0-12.0 5.4 % %] (11/01/14 10:00 AM) Eosinophils [0.0-4.0 0.3 % %] (11/01/14 10:00 AM) Basophils [0.0-1.0 0.3 % %] (11/01/14 10:00 AM) Segs-Bands # 5.0 K/CMM [1.5-8.1 K/CMM] (11/01/14 10:00 AM) Lymphocytes # 1.4 K/CMM [1.0-5.5 K/CMM] (11/01/14 10:00 AM) Monocytes # [0.0-0.8 0.4 K/CMM K/CMM] (11/01/14 10:00 AM) Eosinophils # 0.0 K/CMM [0.0-0.5 K/CMM] (11/01/14 10:00 AM) Basophils # [0.0-0.2 0.0 K/CMM K/CMM] (11/01/14 10:00 AM) MOLECULAR DIAGNOSTIC Most recent to 1 oldest [Reference Range]: Source APTIMA Endocervix *NA* (11/01/14 11:37 AM) N gonorrhea by Amp Negative Det (APTIMA) *NA* [Negative] (11/01/14 11:37 AM) C trachomatis by Amp Negative Det (APTIMA) *NA* [Negative] (11/01/14 11:37 AM) Immunizations No data available for this section Procedures No data available for this section Social History Social History Type Response Smoking Status Never smoker; Exposure to Tobacco Smoke None; Cigarette Smoking Last 365 Days No; Reg Smoking Cessation Counseling No Assessment and Plan No data available for this section
--- OUTSIDE RECORDS SUMMARY | 2018-02-17 20:45 | XMS REPORT | Summary of Care ---
Author Author [facility] Organization [facility] Address Unknown Phone Unavailable Encounter PAT Graff(KELLEY) [id number] Date(s): 08/16/16 - 08/17/16 [facility] [address] [place] [address]- Discharge Diagnosis: Pelvic pain Discharge Disposition: Home or Self Care Attending Physician: Rolando Salguero MD Vital Signs Most recent to 1 2 oldest [Reference Range]: Height 165.1 cm (08/16/16 6:55 PM) Temperature Oral 100 DegF 99.6 DegF [96.4-99.1 DegF] *HI* *HI* (08/17/16 12:25 AM) (08/16/16 6:55 PM) Blood Pressure 112/78 mmHg 125/83 mmHg [90-140/60-90 mmHg] (08/17/16 12:25 AM) (08/16/16 6:55 PM) Respiratory Rate 20 BRMIN 20 BRMIN [14-20 BRMIN] (08/17/16 12:25 AM) (08/16/16 6:55 PM) Peripheral Pulse 106 bpm 103 bpm Rate [60-100 bpm] *HI* *HI* (08/17/16 12:25 AM) (08/16/16 6:55 PM) Weight 93.182 kg (08/16/16 6:55 PM) Body Mass Index 34.19 m2 (08/16/16 6:55 PM) Problem List Condition Effective Dates Status Health Status Informant Miscarriage(Confirme Resolved d) Allergies, Adverse Reactions, Alerts Substance Reaction Severity Status NKDA Active Medications morphine Sulfate 4 mg, 1 mL, Route: IVP, Drug form: INJ, ONCE, Dosing Weight 93.182, kg, Priority : STAT, Start date: 08/16/16 20:04:00 CDT, Stop date: 08/16/16 20:04:00 CDT Notes: (Same as:MORPhine Sulfate) Start Date: 08/16/16 Stop Date: 08/16/16 Status: Completed Motrin 400 mg, 1 tab, Route: PO, Drug form: TAB, ONCE, Dosing Weight 93.182, kg, Priori ty: STAT, Start date: 08/16/16 22:55:00 CDT, Stop date: 08/16/16 22:55:00 CDT Notes: (Same as: Motrin)"Do Not Crush" Give with food. Start Date: 08/16/16 Stop Date: 08/17/16 Status: Completed Motrin IB 200 mg oral tablet 400 mg=2 tab, PO, Q6H, PRN Fever, # 120 tab, 0 Refill(s) Start Date: 08/17/16 Stop Date: 08/22/16 Status: Ordered NS (Bolus) IV 1,000 mL, 1,000 ml/hr, Infuse Over: 1 hr, Route: IV, 1,000, Drug form: INJ, ONCE , Priority: STAT, Dosing Weight 93.182 kg, Start date: 08/16/16 20:04:00 CDT, Du ration: 1 doses or times, Stop date: 08/16/16 20:04:00 CDT Start Date: 08/16/16 Stop Date: 08/16/16 Status: Completed Omnipaque 300 injectable solution 85 mL, Route: IVP, Drug Form: SOLN, Dosing Weight 93.182, kg, ONCALL, GFR > 45 mL/min, STAT, Start date: 08/16/16 21:18:00 CDT, Duration: 1 doses or times Notes: (Same as:Omnipaque 300).WASTE: F/P - Black; E - Municipal Trash Bin Start Date: 08/16/16 Stop Date: 08/16/16 Status: Completed sodium chloride 0.9% 1000 ml INJ 1,000 mL 1,000 mL, Rate: 125 ml/hr, Infuse over: 8 hr, Route: IV, Dosing Weight 93.182 kg , Total Volume: 1,000, Start date: 08/16/16 22:41:00 CDT, Duration: 30 day, Stop date: 09/15/16 22:40:00 CDT Start Date: 08/16/16 Stop Date: 08/17/16 Status: Discontinued tramadol 50 mg oral tablet 50 mg=1 tab, PO, Q4H, # 12 tab, 0 Refill(s) Start Date: 08/17/16 Stop Date: 08/22/16 Status: Ordered Zofran 4 mg, 2 mL, Route: IVP, Drug form: INJ, ONCE, Dosing Weight 93.182, kg, Priority : STAT, Start date: 08/16/16 20:05:00 CDT, Stop date: 08/16/16 20:05:00 CDT Notes: (Same as: Zofran) MEDICATION WASTE Product Size: 4 mgProduct Was mt: ___ mg Start Date: 08/16/16 Stop Date: 08/16/16 Status: Completed Zosyn + sodium chloride 0.9% INJ 100 mL 3.375 gm, Route: IVPB, ONCE, Dosing Weight 93.182, kg, Priority: STAT, Start love e: 08/16/16 20:05:00 CDT, Duration: 1 doses or times, Stop date: 08/16/16 20:05: 00 CDT, ABX Indication: Intra-abdominal Infection Notes: (Same as: Zosyn)Dosing based on Piperacillin component MEDICATION WA BALA Product Size: 3375 mgProduct Wasted: ___ mg Start Date: 08/16/16 Stop Date: 08/16/16 Status: Completed Results ELECTROLYTES Most recent to 1 oldest [Reference Range]: Sodium Lvl [135-145 134 mEq/L mEq/L] *LOW* (08/16/16 8:26 PM) Potassium Lvl 4.0 mEq/L [3.5-5.1 mEq/L] (08/16/16 8:26 PM) Chloride Lvl [95-109 100 mEq/L mEq/L] (08/16/16 8:26 PM) CO2 [24-32 mEq/L] 26 mEq/L (08/16/16 8:26 PM) AGAP [10.0-20.0 12.0 mEq/L mEq/L] (08/16/16 8:26 PM) CHEM PANEL Most recent to 1 oldest [Reference Range]: Creatinine Lvl 0.76 mg/dL [0.50-1.40 mg/dL] (08/16/16 8:26 PM) eGFR 109 mL/min/1.73m2 1 *NA* (08/16/16 8:26 PM) BUN [7-22 mg/dL] 7 mg/dL (08/16/16 8:26 PM) B/C Ratio [6-25] 9 (08/16/16 8:26 PM) Glucose Lvl [70-99 120 mg/dL mg/dL] *HI* (08/16/16 8:26 PM) Total Protein 8.2 g/dL [6.4-8.4 g/dL] (08/16/16 8:26 PM) Albumin Lvl [3.5-5.0 3.7 g/dL g/dL] (08/16/16 8:26 PM) Globulin [2.7-4.2 4.5 g/dL g/dL] *HI* (08/16/16 8:26 PM) A/G Ratio [0.7-1.6] 0.8 (08/16/16 8:26 PM) Calcium Lvl 9.0 mg/dL [8.5-10.5 mg/dL] (08/16/16 8:26 PM) ALT [0-65 unit/L] 57 unit/L (08/16/16 8:26 PM) AST [0-37 unit/L] 45 unit/L *HI* (08/16/16 8:26 PM) Alk Phos [39-136 90 unit/L unit/L] (08/16/16 8:26 PM) Bili Total [0.2-1.3 0.4 mg/dL mg/dL] (08/16/16 8:26 PM) Lipase Lvl [73-393 99 unit/L unit/L] (08/16/16 8:26 PM) 1Result Comment: The eGFR is calculated [...] Most recent to 1 oldest [Reference Range]: S Preg [Negative] Negative *NA* (08/16/16 8:26 PM) URINE AND STOOL Most recent to 1 oldest [Reference Range]: UA Turbidity [Clear] Slight *ABN* (08/16/16 8:26 PM) UA Color Yellow *NA* (08/16/16 8:26 PM) UA pH [5.0-8.0] 6.0 (08/16/16 8:26 PM) UA Spec Grav 1.021 [<=1.030] (08/16/16 8:26 PM) UA Glucose [Negative Negative mg/dL mg/dL] *NA* (08/16/16 8:26 PM) UA Blood [Negative] Negative (08/16/16 8:26 PM) UA Ketones [Negative Negative mg/dL mg/dL] *NA* (08/16/16 8:26 PM) UA Protein [Negative Negative mg/dL mg/dL] (08/16/16 8:26 PM) UA Urobilinogen <=1.0 mg/dL [0.1-1.0 mg/dL] *NA* (08/16/16 8:26 PM) UA Bili [Negative] Negative *NA* (08/16/16 8:26 PM) UA Leuk Est Trace [Negative] *ABN* (08/16/16 8:26 PM) UA Nitrite Negative [Negative] (08/16/16 8:26 PM) UA WBC [0-5 /HPF] 3 /HPF (08/16/16 8:26 PM) UA RBC [0-2 /HPF] <1 /HPF (08/16/16 8:26 PM) UA Bacteria [None Occasional /HPF Seen /HPF] *NA* (08/16/16 8:26 PM) UA Sq Epi [Few /LPF] Many /LPF *ABN* (08/16/16 8:26 PM) UA Mucus [None Seen Few /LPF /LPF] *NA* (08/16/16 8:26 PM) HEMATOLOGY Most recent to 1 oldest [Reference Range]: WBC [3.7-10.4 K/CMM] 14.6 K/CMM *HI* (08/16/16 8:26 PM) RBC [4.20-5.40 4.25 M/CMM M/CMM] (08/16/16 8:26 PM) Hgb [12.0-16.0 g/dL] 12.7 g/dL (08/16/16 8:26 PM) Hct [36.0-48.0 %] 38.1 % (08/16/16 8:26 PM) MCV [80.0-98.0 fL] 89.5 fL (08/16/16 8:26 PM) MCH [27.0-31.0 pg] 29.8 pg (08/16/16 8:26 PM) MCHC [32.0-36.0 33.3 g/dL g/dL] (08/16/16 8:26 PM) RDW [11.5-14.5 %] 12.3 % (08/16/16 8:26 PM) Platelet [133-450 298 K/CMM K/CMM] (08/16/16 8:26 PM) MPV [7.4-10.4 fL] 7.8 fL (08/16/16 8:26 PM) Segs [45.0-75.0 %] 71.0 % (08/16/16 8:26 PM) Bands [0.0-11.0 %] 18.0 % *HI* (08/16/16 8:26 PM) Lymphocytes 6.0 % [20.0-40.0 %] *LOW* (08/16/16 8:26 PM) Atypical Lymphs 0.0 % [<=0.0 %] (08/16/16 8:26 PM) Monocytes [2.0-12.0 4.0 % %] (08/16/16 8:26 PM) Basophils [0.0-1.0 1.0 % %] (08/16/16 8:26 PM) Segs-Bands # 13.0 K/CMM [1.5-8.1 K/CMM] *HI* (08/16/16 8:26 PM) Lymphocytes # 0.9 K/CMM [1.0-5.5 K/CMM] *LOW* (08/16/16 8:26 PM) Monocytes # [0.0-0.8 0.6 K/CMM K/CMM] (08/16/16 8:26 PM) Basophils # [0.0-0.2 0.1 K/CMM K/CMM] (08/16/16 8:26 PM) RBC Morph Normal (08/16/16 8:26 PM) Plt Morph Normal (08/16/16 8:26 PM) Immunizations No data available for this [...]
--- OUTSIDE RECORDS SUMMARY | 2018-02-17 20:45 | XMS REPORT | Summary of Care ---
Author Author [facility] Organization [facility] Address Unknown Phone Unavailable Encounter PAT Graff(KELLEY) [id number] Date(s): 05/17/17 - 05/17/17 [facility] [address] [place] [address]- Encounter Diagnosis Encounter for supervision of low-risk in third trimester (Discharge Diagnosis) - 05/17/17 False labor at or after 37 completed weeks of gestation (Final) - 05/24/17 38 weeks gestation of (Final) - Discharge Disposition: Home or Self Care Attending Physician: Glory Espinosa MD Vital Signs 1 2 3 Most recent to oldest [Reference Range]: 165.1 cm (05/17/17 1:03 PM) Height 98.2 DegF (05/17/17 1:03 PM) Temperature Oral [96.4-99.1 DegF] 124/79 mmHg (05/17/17 1:48 PM) 121/85 mmHg (05/17/17 1:15 PM) 121/78 mmHg (05/17/17 1:03 PM) Blood Pressure [90-140/60-90 mmHg] 16 BRMIN (05/17/17 1:03 PM) Respiratory Rate [14-20 BRMIN] 97 bpm (05/17/17 1:03 PM) Peripheral Pulse Rate [60-100 bpm] 108.909 kg (05/17/17 1:03 PM) Weight 39.95 m2 (05/17/17 1:03 PM) Body Mass Index Problem List Condition Effective Dates Status Health Status Informant Miscarriage(Confirme Resolved d) Miscarriage(Confirme < 2015 Resolved d) (Confirmed) 05/11/17 - 05/25/17 Resolved (Confirmed) < 2014 Resolved (Confirmed) < 2013 Resolved (Confirmed) 11/19/12 - 08/26/13 Resolved (Confirmed) 02/04/09 - 11/11/09 Resolved Allergies, Adverse Reactions, Alerts Substance Reaction Severity Status NKDA Active Medications No Known Medications Results No data available for this section [...]
--- OUTSIDE RECORDS SUMMARY | 2018-02-17 20:46 | XMS REPORT | Summary of Care ---
Author Author [facility] Organization [facility] Address Unknown Phone Unavailable Encounter PAT Graff(FIN) [id number] Date(s): 05/23/17 - 05/23/17 [facility] [address] [place] [address]- Encounter Diagnosis False labor at or after 37 completed weeks of gestation (Final) - 05/30/17 39 weeks gestation of (Final) - Discharge Disposition: Home or Self Care Attending Physician: Hoda Aggarwal MD Admitting Physician: Hoda Aggarwal MD Vital Signs Most recent to 1 oldest [Reference Range]: Height 165.1 cm (05/23/17 11:13 AM) Weight 108.182 kg (05/23/17 11:13 AM) Body Mass Index 39.69 m2 (05/23/17 11:13 AM) Problem List Condition Effective Dates Status Health Status Informant Miscarriage(Confirme Resolved d) Miscarriage(Confirme < 2015 Resolved d) (Confirmed) 05/11/17 - 05/25/17 Resolved (Confirmed) < 2014 Resolved (Confirmed) < 2013 Resolved (Confirmed) 11/19/12 - 08/26/13 Resolved (Confirmed) 02/04/09 - 11/11/09 Resolved Allergies, Adverse Reactions, Alerts Substance Reaction Severity Status NKDA Active Medications Lactated Ringers (Bolus) IV 1,000 mL, 1,000 ml/hr, Infuse Over: 1 hr, Route: IV, ONCE, Priority: STAT, Dosin g Weight 108.182 kg, Start date: 05/23/17 11:25:00 CDT, Stop date: 05/23/17 11:2 5:00 CDT Start Date: 05/23/17 Stop Date: 05/23/17 Status: Completed Results No data available for this section [...]
--- OUTSIDE RECORDS SUMMARY | 2018-02-17 20:46 | XMS REPORT | Summary of Care ---
Author Author [facility] Organization [facility] Address Unknown Phone Unavailable Encounter PAT Graff(KELLEY) [id number] Date(s): 05/24/17 - 05/27/17 [facility] [address] [place] [address]- Encounter Diagnosis Maternal care for excessive growth, third trimester, not applicable or uns pecified (Final) - 05/31/17 Obesity complicating childbirth (Final) - Body mass index (BMI) 40.0-44.9, adult (Final) - 39 weeks gestation of (Final) - Single live (Final) - Discharge Disposition: Home or Self Care Attending Physician: Hoda Aggarwal MD Admitting Physician: Hoda Aggarwal MD Vital Signs 1 2 3 Most recent to oldest [Reference Range]: 165.1 cm (05/24/17 7:24 AM) Height 98.7 DegF (05/27/17 9:00 AM) 97.9 DegF (05/27/17 12:05 AM) 97.9 DegF (05/26/17 4:00 PM) Temperature Oral [96.4-99.1 DegF] 119/80 mmHg (05/27/17 9:00 AM) 129/84 mmHg (05/27/17 12:05 AM) 103/64 mmHg (05/26/17 4:00 PM) Blood Pressure [90-140/60-90 mmHg] 18 BRMIN (05/27/17 9:00 AM) 18 BRMIN (05/27/17 12:05 AM) 18 BRMIN (05/26/17 4:00 PM) Respiratory Rate [14-20 BRMIN] 77 bpm (05/27/17 9:00 AM) 74 bpm (05/27/17 12:05 AM) 74 bpm (05/26/17 4:00 PM) Peripheral Pulse Rate [60-100 bpm] 109.091 kg (05/24/17 7:24 AM) Weight 40.02 m2 (05/24/17 7:24 AM) Body Mass Index Problem List Condition Effective Dates Status Health Status Informant Miscarriage(Confirme Resolved d) Miscarriage(Confirme < 2016 Resolved d) (Confirmed) 05/11/17 - 05/25/17 Resolved (Confirmed) < 2014 Resolved (Confirmed) < 2013 Resolved (Confirmed) 11/19/12 - 08/26/13 Resolved (Confirmed) 02/04/09 - 11/11/09 Resolved Allergies, Adverse Reactions, Alerts Substance Reaction Severity Status NKDA Active Medications acetaminophen 650 mg, Route: PO, Drug form: TAB, ONCE, Dosing Weight 109.091, kg, PRN For Temp > 100.4 F, Start date: 05/25/17 10:10:00 CDT Start Date: 05/25/17 Stop Date: 05/25/17 Status: Completed acetaminophen-hydrocodone 325 mg-10 mg oral tablet 1 tab, Route: PO, Drug Form: TAB, Dosing Weight 109.091, kg, Q4H, PRN Pain Score 7-10, Start date: 05/25/17 10:42:00 CDT, Duration: 30 day, Stop date: 06/24/17 10:41:00 CDT Notes: Do not exceed 4gm/day of acetaminophen. (Same as: [place] 325/10) Start Date: 05/25/17 Stop Date: 05/27/17 Status: Discontinued acetaminophen-hydrocodone 325 mg-5 mg oral tablet 1 tab, Route: PO, Drug Form: TAB, Dosing Weight 109.091, kg, Q4H, PRN Pain Score 4-6, Start date: 05/25/17 10:42:00 CDT, Duration: 30 day, Stop date: 06/24/17 1 0:41:00 CDT Notes: (Same as: [place] 325/5) Do not exceed 4gm/day of acetaminophen. Start Date: 05/25/17 Stop Date: 05/27/17 Status: Discontinued acetaminophen-hydrocodone 325 mg-5 mg oral tablet 2 tab, Route: PO, Drug Form: TAB, Dosing Weight 109.091, kg, Q4H, PRN Pain Score 7-10, Start date: 05/24/17 7:25:00 CDT, Duration: 30 day, Stop date: 06/23/17 7 :24:00 CDT Notes: (Same as: [place] 325/5) Do not exceed 4gm/day of acetaminophen. Start Date: 05/24/17 Stop Date: 05/25/17 Status: Discontinued acetaminophen-hydrocodone 325 mg-5 mg oral tablet 1 tab, Route: PO, Drug Form: TAB, Dosing Weight 109.091, kg, Q4H, PRN Pain Score 4-6, Start date: 05/24/17 7:25:00 CDT, Duration: 30 day, Stop date: 06/23/17 7: 24:00 CDT Notes: (Same as: [place] 325/5) Do not exceed 4gm/day of acetaminophen. Start Date: 05/24/17 Stop Date: 05/25/17 Status: Discontinued ampicillin + Sodium Chloride 0.9% IV 100 mL 2 gm, Route: IVPB, ABXQ6H, Dosing Weight 109.091, kg, Start date: 05/24/17 22:00 :00 CDT, Duration: 30 day, Stop date: 06/23/17 16:00:00 CDT Notes: (Same as: Norah) MEDICATION WASTE Product Size: [address] Wasted: ___ mg Start Date: 05/24/17 Stop Date: 05/25/17 Status: Discontinued bisacodyl 10 mg, 1 supp, Route: IA, Drug form: SUPP, PRN, Dosing Weight 109.091, kg, PRN O ther -See Comment, Start date: 05/25/17 10:42:00 CDT, Duration: 30 day, Stop love e: 06/24/17 10:41:00 CDT Notes: (Same As: Dulcolax, Bisco-Lax) Start Date: 05/25/17 Stop Date: 05/27/17 Status: Discontinued bisacodyl 15 mg, 3 tab, Route: PO, Drug form: ECTAB, Daily, Dosing Weight 109.091, kg, PRN Other -See Comment, Start date: 05/25/17 10:42:00 CDT, Duration: 30 day, Stop d ate: 06/24/17 10:41:00 CDT Notes: (Same As: Dulcolax, Correctol) (Do Not Crush) "Do Not Crush" Start Date: 05/25/17 Stop Date: 05/27/17 Status: Discontinued butorphanol 2 mg, 1 mL, Route: IVP, Drug form: INJ, Q2H, Dosing Weight 109.091, kg, PRN Pain Score 7-10, Start date: 05/24/17 7:25:00 CDT, Duration: 30 day, Stop date: 05/30 08/15 7:24:00 CDT Notes: (Same As: Stadol) MEDICATION WASTE Product Size: 2 mgProduct Was mt: ___ mg Start Date: 05/24/17 Stop Date: 05/25/17 Status: Discontinued butorphanol 1 mg, 1 mL, Route: IVP, Drug form: INJ, Q2H, Dosing Weight 109.091, kg, PRN Pain Score 4-6, Start date: 05/24/17 7:25:00 CDT, Duration: 30 day, Stop date: 06/23 7:24:00 CDT Notes: (Same As: Stadol) Start Date: 05/24/17 Stop Date: 05/25/17 Status: Discontinued carboprost 250 microgram, 1 mL, Route: IM, Drug form: INJ, ONCALL, Dosing Weight 109.091, k g, Start date: 05/24/17 8:00:00 CDT, Duration: 30 day, Stop date: 06/23/17 7:59: 00 CDT Notes: (Same As: Hemabate) Start Date: 05/24/17 Stop Date: 05/25/17 Status: Discontinued Cervidil 10 mg, 1 supp, Route: VAG, Drug form: SUPP, ONCE, Dosing Weight 109.091, kg, Sta rt date: 05/24/17 17:27:00 CDT, Stop date: 05/24/17 17:27:00 CDT Notes: (Same as: Cervidil) Start Date: 05/24/17 Stop Date: 05/24/17 Status: Completed citric acid-sodium citrate 30 mL, Route: PO, Drug Form: SOLN, Dosing Weight 109.091, kg, ONCALL, Start date : 05/24/17 8:00:00 CDT, Duration: 30 day, Stop date: 06/23/17 7:59:00 CDT Notes: (Same As: Bicitra) Start Date: 05/24/17 Stop Date: 05/25/17 Status: Discontinued Demerol HCl 25 mg, 0.5 mL, Route: IVP, Drug form: INJ, ONCE, Dosing Weight 109.091, kg, PRN Chills/Rigors, Start date: 05/25/17 10:44:00 CDT Notes: (Same As: Demerol) Start Date: 05/25/17 Stop Date: 05/27/17 Status: Discontinued Dermoplast 20% topical spray 1 spray, Route: TOP, PRN, Drug form: SPRY, PRN Irritation, Start date: 05/25/17 10:42:00 CDT, Duration: 30 day, Stop date: 06/24/17 10:41:00 CDT Notes: (Same As: Dermoplast)WASTE: Aerosol - Return to Pharmacy FOR EXTERNAL US E ONLY Start Date: 05/25/17 Stop Date: 05/27/17 Status: Discontinued docusate 100 mg, 1 cap, Route: PO, Drug form: CAP, BID, Dosing Weight 109.091, kg, PRN Co nstipation, Start date: 05/25/17 10:42:00 CDT, Duration: 30 day, Stop date: 05/30 09/14 10:41:00 CDT Notes: (Same as: Colace) (Do Not Crush) Start Date: 05/25/17 Stop Date: 05/27/17 Status: Discontinued famotidine 20 mg, 2 mL, Route: IVP, Drug form: INJ, ONCALL, Dosing Weight 109.091, kg, Star t date: 05/24/17 8:00:00 CDT, Duration: 30 day, Stop date: 06/23/17 7:59:00 CDT Notes: (Same as: Pepcid)Can be dilute in 5-10cc NS IVP: Slow IV push over at le ast 2 minutes. Start Date: 05/24/17 Stop Date: 05/25/17 Status: Discontinued ibuprofen 600 mg, 1 tab, Route: PO, Drug form: TAB, Q6H, Dosing Weight 109.091, kg, Start date: 05/25/17 12:00:00 CDT, Duration: 30 day, Stop date: 06/24/17 6:00:00 CDT Notes: (Same as: Motrin)"Do Not Crush" Take with food. Start Date: 05/25/17 Stop Date: 05/27/17 Status: Discontinued ibuprofen 600 mg, 1 tab, Route: PO, Drug form: TAB, Q6H, Dosing Weight 109.091, kg, PRN Ot her -See Comment, Start date: 05/24/17 7:25:00 CDT, Duration: 30 day, Stop date: 06/23/17 7:24:00 CDT Notes: (Same as: Motrin)"Do Not Crush" Take with food. Start Date: 05/24/17 Stop Date: 05/25/17 Status: Discontinued ibuprofen 600 mg oral tablet 600 mg=1 tab, PO, Q6H, # 30 tab, 1 Refill(s), Pharmacy: [id number] Start Date: 05/26/17 Stop Date: 06/22/17 Status: Completed Lactated Ringers (Bolus) IV 1,000 mL, 1,000 ml/hr, Infuse Over: 1 hr, Route: IV, 1,000, Drug form: INJ, ONCE , Dosing Weight 109.091 kg, Start date: 05/24/17 7:25:00 CDT, Stop date: 8 7:25:00 CDT, Bolus for regional anesthesia per unit protocol Start Date: 05/24/17 Stop Date: 05/25/17 Status: Discontinued Lactated Ringers IV 1,000 mL 1,000 mL, Rate: 100 ml/hr, Infuse over: 10 hr, Route: IV, Dosing Weight 109.091 kg, Total Volume: 1,000, Start date: 05/25/17 10:42:00 CDT, Duration: 30 day, St op date: 06/24/17 10:41:00 CDT, 2.27, m2 Start Date: 05/25/17 Stop Date: 05/27/17 Status: Discontinued Lactated Ringers IV 1,000 mL 1,000 mL, Rate: 125 ml/hr, Infuse over: 8 hr, Route: IV, Dosing Weight 109.091 k g, Total Volume: 1,000, Start date: 05/24/17 7:25:00 CDT, Duration: 30 day, Stop date: 06/23/17 7:24:00 CDT, 2.27, m2 Start Date: 05/24/17 Stop Date: 05/25/17 Status: Discontinued lanolin topical 1 appl, Route: TOP, PRN, Drug form: OINT, PRN Other -See Comment, Start date: 10:42:00 CDT, Duration: 30 day, Stop date: 06/24/17 10:41:00 CDT Notes: (Same as:Lanolin) Start Date: 05/25/17 Stop Date: 05/27/17 Status: Discontinued lidocaine 1% 200 mg, 20 mL, Route: PERCUT, Drug Form: INJ, Dosing Weight 109.091, kg, PRN, IA N Other -See Comment, Start date: 05/24/17 7:25:00 CDT, Duration: 1 doses or jazzy es, Stop date: Limited # of times Notes: (Same as: Xylocaine) Start Date: 05/24/17 Stop Date: 05/25/17 Status: Discontinued lidocaine 1% injectable solution 2.5 mg, 0.25 mL, Route: INTRADERM, Drug Form: INJ, Dosing Weight 109.091, kg, IA N, PRN Other -See Comment, Start date: 05/24/17 7:25:00 CDT, Duration: 30 day, S top date: 06/23/17 7:24:00 CDT Notes: (Same as: Xylocaine) Start Date: 05/24/17 Stop Date: 05/25/17 Status: Discontinued methylergonovine 0.2 mg, 1 mL, Route: IM, Drug form: INJ, PRN, Dosing Weight 109.091, kg, PRN Oth er -See Comment, Start date: 05/25/17 10:42:00 CDT, Duration: 30 day, Stop date: 06/24/17 10:41:00 CDT Notes: (Same as:Methergine) Start Date: 05/25/17 Stop Date: 05/27/17 Status: Discontinued methylergonovine 0.2 mg, 1 mL, Route: IM, Drug form: INJ, ONCALL, Dosing Weight 109.091, kg, Star t date: 05/24/17 8:00:00 CDT, Duration: 30 day, Stop date: 06/23/17 7:59:00 CDT Notes: (Same as:Methergine) Start Date: 05/24/17 Stop Date: 05/25/17 Status: Discontinued misoprostol 1,000 microgram, 5 tab, Route: IA, Drug form: TAB, ONCALL, Dosing Weight 109.091 , kg, Start date: 05/24/17 8:00:00 CDT, Duration: 1 doses or times Notes: (Same as:Cytotec) Take with food Start Date: 05/24/17 Stop Date: 05/25/17 Status: Completed misoprostol 100 microgram, 1 tab, Route: PO, Drug form: TAB, Q4H, Dosing Weight 109.091, kg, Start date: 05/24/17 9:19:00 CDT, Duration: 30 day, Stop date: 06/23/17 8:00:00 CDT Notes: (Same as:Cytotec) Take with food Start Date: 05/24/17 Stop Date: 05/24/17 Status: Discontinued ondansetron 4 mg, 2 mL, Route: IVP, Drug form: INJ, Q8H, Dosing Weight 109.091, kg, PRN Naus ea & Vomiting, Start date: 05/25/17 10:42:00 CDT, Duration: 30 day, Stop date: 06/24/17 10:41:00 CDT Notes: (Same as: Nicolas) MEDICATION WASTE Product Size: 4 mgProduct Was mt: ___ mg Start Date: 05/25/17 Stop Date: 05/27/17 Status: Discontinued ondansetron 4 mg, 2 mL, Route: IVP, Drug form: INJ, Q8H, Dosing Weight 109.091, kg, PRN Naus ea & Vomiting, Start date: 05/24/17 7:25:00 CDT, Duration: 30 day, Stop date: 06/23/17 7:24:00 CDT Notes: (Same as: Zofran) MEDICATION WASTE Product Size: 4 mgProduct Was mt: ___ mg Start Date: 05/24/17 Stop Date: 05/25/17 Status: Discontinued oxytocin 30 units in NS 500ml (Titrate) IV 30 unit 30 unit, 500 mL, Rate: 42 ml/hr, Infuse over: 11.9 hr, Dosing Weight 109.091, kg , Route: IV, Total Volume: 500 mL, Start date: 05/25/17 10:42:00 CDT, Duration: 2 day, Stop date: 05/27/17 10:41:00 CDT, Replace Every: 11.9 hr Start Date: 05/25/17 Stop Date: 05/27/17 Status: Completed oxytocin 30 units in NS 500ml (Titrate) IV 30 unit 30 unit, 500 mL, Rate: 42 ml/hr, Infuse over: 11.9 hr, Dosing Weight 109.091, kg , Route: IV, Total Volume: 500 mL, Start date: 05/24/17 7:25:00 CDT, Duration: 2 day, Stop date: 05/26/17 7:24:00 CDT, Replace Every: 11.9 hr Start Date: 05/24/17 Stop Date: 05/25/17 Status: Discontinued oxytocin 30 units in NS 500ml (Titrate) IV 30 unit 30 unit, 500 mL, Rate: Titrate, Dosing Weight 109.091, kg, Route: IV, Total Volu me: 500 mL, Start date: 05/25/17 3:00:00 CDT, Duration: 2 day, Stop date: 2:59:00 CDT, Replace Every: 24 hr Start Date: 05/25/17 Stop Date: 05/25/17 Status: Discontinued Multivitamins oral tablet 1 tab, Route: PO, Drug Form: TAB, Dosing Weight 109.091, kg, Daily, Start date: 05/26/17 9:00:00 CDT, Duration: 30 day, Stop date: 06/24/17 9:00:00 CDT Start Date: 05/26/17 Stop Date: 05/27/17 Status: Discontinued Remove - dinoprostone (Cervidil) insert 1 ea, Route: VAG, Drug Form: INS, Dosing Weight 109.091, kg, ONCALL, Start date: 05/24/17 20:00:00 CDT, Duration: 30 day, Stop date: 06/23/17 19:59:00 CDT Notes: Vaginal insert: to be removed 1 hour prior to oxytocin administration or 12 hours after insertion. Start Date: 05/24/17 Stop Date: 05/25/17 Status: Discontinued terbutaline 0.25 mg, 0.25 mL, Route: SUB-Q, Drug form: INJ, PRN, Dosing Weight 109.091, kg, PRN Other -See Comment, Start date: 05/24/17 7:25:00 CDT, Duration: 1 doses or t imes, Stop date: Limited # of times Notes: DO NOT USE IN [employer] AREA(Same As: Meet) Start Date: 05/24/17 Stop Date: 05/25/17 Status: Discontinued zolpidem 5 mg, 1 tab, Route: PO, Drug form: TAB, Bedtime, Dosing Weight 109.091, kg, PRN Sleep, Start date: 05/25/17 10:42:00 CDT, Duration: 30 day, Stop date: 06/24/17 10:41:00 CDT Notes: (Same As: Roberto Carlos) Start Date: 05/25/17 Stop Date: 05/27/17 Status: Discontinued Results BLOOD BANK RESULTS Most recent to 1 2 oldest [Reference Range]: ABO/Rh O POS *Unknown* (05/24/17 7:27 AM) Antibody Scrn Negative (05/24/17 7:27 AM) Rhig Reqd See Note 1 (05/24/17 7:27 AM) 1Result Comment: 05/24/2017 08:19 [id number] This patient is not a candidate for Rh(O)D immune globulin. IMMUNOLOGY Most recent to 1 2 oldest [Reference Range]: Treponemal Ab [Non Non Reactive Reactive] *NA* (05/24/17 7:27 AM) HIV. [Negative] Negative *NA* (05/24/17 7:27 AM) Hep Bs Ag [Negative] Negative *NA* (05/24/17 7:27 AM) HEMATOLOGY Most recent to 1 2 oldest [Reference Range]: WBC [3.7-10.4 K/CMM] 7.5 K/CMM (05/24/17 7:27 AM) RBC [4.20-5.40 3.40 M/CMM M/CMM] *LOW* (05/24/17 7:27 AM) Hgb [12.0-16.0 g/dL] 7.4 g/dL 9.4 g/dL *LOW* *LOW* (05/26/17 4:14 AM) (05/24/17 7:27 AM) Hct [36.0-48.0 %] 24.0 % 27.8 % *LOW* *LOW* (05/26/17 4:14 AM) (05/24/17 7: AM) MCV [80.0-98.0 fL] 81.7 fL (05/24/17 7: AM) MCH [27.0-31.0 pg] 27.7 pg (05/24/17: AM) MCHC [32.0-36.0 33.9 g/dL g/dL] (05/24/17 7: AM) RDW [11.5-14.5 %] 15.9 % *HI* (05/24/17 7:27 AM) MPV [7.4-10.4 fL] 8.0 fL (05/24/17 7:27 AM) Platelet [133-450 273 K/CMM K/CMM] (05/24/17 7:27 AM) Segs [45.0-75.0 %] 65.7 % (05/24/17 7:27 AM) Lymphocytes 26.9 % [20.0-40.0 %] (05/24/17 7:27 AM) Monocytes [2.0-12.0 5.7 % %] (05/24/17 7:27 AM) Eosinophils [0.0-4.0 1.3 % %] (05/24/17 7:27 AM) Basophils [0.0-1.0 0.4 % %] (05/24/17 7:27 AM) Segs-Bands # 4.9 K/CMM [1.5-8.1 K/CMM] (05/24/17 7:27 AM) Lymphocytes # 2.0 K/CMM [1.0-5.5 K/CMM] (05/24/17 7:27 AM) Monocytes # [0.0-0.8 0.4 K/CMM K/CMM] (05/24/17 7:27 AM) Eosinophils # 0.1 K/CMM [0.0-0.5 K/CMM] (05/24/17 7:27 AM) Basophils # [0.0-0.2 0.0 K/CMM K/CMM] (05/24/17 7:27 AM) Immunizations Not Given Vaccine Date Status Refusal [...]
[2018-02-17 22:14] LABS: BASOPHILS % 0.1 % (0.0-1.0); EOSINOPHILS # (AUTO) 0.1 (0.0-0.4); EOSINOPHILS % 0.9 % (0.0-6.0); HEMATOCRIT 34.2 % (34.2-44.1); HEMOGLOBIN 11.6 g/dL (12.0-16.0); LYMPHOCYTES # (AUTO) 1.3 (1.0-3.2); LYMPHOCYTES % 19.9 % (18.0-39.1); MEAN CORPUSCULAR HEMOGLOBIN 29.5 pg (28-32); MEAN CORPUSCULAR HGB CONC 33.9 g/dL (31-35); MONOCYTES # (AUTO) 0.4 (0.2-0.8); MONOCYTES % 5.5 % (4.4-11.3); NEUTROPHILS # (AUTO) 4.9 (2.1-6.9); NEUTROPHILS % 73.3 % (38.7-80.0); PLATELET COUNT 281 x10e3/uL (140-360); RED BLOOD COUNT 3.93 x10e6/uL (3.6-5.1); RED CELL DISTRIBUTION WIDTH 12.9 % (11.7-14.4)
[2018-02-17 22:29] LABS: ALANINE AMINOTRANSFERASE 6 IU/L (0-55); ALBUMIN 3.5 g/dL (3.5-5.0); ALBUMIN/GLOBULIN RATIO 0.8 (0.8-2.0); ALKALINE PHOSPHATASE 57 IU/L (40-150); ANION GAP 13.7 mmol/L (8-16); BLOOD UREA NITROGEN 7 mg/dL (7-26); BUN/CREATININE RATIO 10 (6-25); CALCIUM 9.6 mg/dL (8.4-10.2); CARBON DIOXIDE 20 mmol/L (22-29); CHLORIDE 102 mmol/L (98-107); CREATININE, SERUM 0.71 mg/dL (0.57-1.11); EST GLOMERULAR FILTRATION RATE > 60 ML/MIN (60-); GLUCOSE 86 mg/dL (74-118); POTASSIUM 3.7 mmol/L (3.5-5.1); SODIUM 132 mmol/L (136-145)
[2018-02-17 22:34] LABS: CLARITY,URINE HAZY (CLEAR); COLOR,URINE YELLOW (YELLOW); LEUKOCYTE ESTERASE ,URINE 1+ (NEGATIVE)
[2018-02-17 22:35] LABS: AMPHETAMINES SCREEN,URINE NEGATIVE (NEGATIVE); BENZODIAZEPINES SCREEN,URINE NEGATIVE (NEGATIVE); BILIRUBIN,URINE NEGATIVE (NEGATIVE); KETONES,URINE NEGATIVE (NEGATIVE); NITRITE,URINE NEGATIVE (NEGATIVE); PHENCYCLIDINE SCREEN,URINE NEGATIVE (NEGATIVE); PROTEIN,URINE DIPSTICK NEGATIVE (NEGATIVE); URINE UROBILINOGEN 0.2 mg/dL (0.2 - 1)
[2018-02-17 22:38] LABS: BACTERIA,URINE MODERATE /HPF; EPITHELIAL CELLS,URINE FEW /LPF; MUCUS,URINE FEW (RARE); RBC,URINE 0-5 /HPF (0-5)
[2018-02-17 23:04] LABS: HCG,QUANTITATIVE 28089.26 mIU/mL (0-10)
[2018-02-17] MEDS ORDERED: MACROBID 100 M100 MG PO (23:49)
--- NOTE | 2018-02-18 01:01 | Diagnostic Imaging Report ---
EXAM: US OB HEAD 1 OR MORE FETUSES DATE: 02/17/2018 12:00 AM INDICATION: Bleeding, COMPARISON: None TECHNIQUE: Multiple transabdominal images of the uterus and fetus were obtained using santana-scale, color Doppler and M-mode. FINDINGS: LMP 11/11/2017 A0 Type of Gestation: [place] GA by LMP: 14w 0d GA by current U/S: 15w 2d Measurements: BPD 28.6 mm 15w 1d HC 104.6 mm 15w 0d AC 94.4 mm 15w 4d FL 17.4 mm 15w 1d Estimated Weight: 120.8 g, >97% size is appropriate for gestational age. Visualized Anatomy: Regular cardiac rhythm Position: Cephalic Placental Location: Posterior/fundal No evidence of placental previa. Cervical Length: 3.4 cm, transabdominal view There is no funneling of the internal os. Amniotic Fluid Index: Adequate. Heart Rate: 167 bpm IMPRESSION: Single living intrauterine without acute abnormality identified. Signed by: Dr Rhina Julien MD on 02/17/2018 11:56 PM
[2018-02-18 01:55] VITALS: BP 122/89
== END 2018-02-18 01:56 | disposition home or self-care (01) ==
LOC: ER 20:41
DX: O23.11 Infections of bladder in pregnancy, first trimester (principal); Z3A.14 14 weeks gestation of pregnancy
CPT/HCPCS: 36415; 76815; 80053; 80307; 81001; 84702; 85025; 86850; 86900; 99283